=== PATIENT | male | born 1995 | race Two or more races ===

== ENCOUNTER 2019-10-19 23:59 | Inpatient (IN) | payer MEDICAID ==
[~2019-10-19] VITALS: Ht 182.9 cm; Wt 52.3 kg
[2019-10-20 00:50] LABS: Basophils # (auto) 0 10 ^3/uL (0-0.2); Basophils % (auto) 0.4 % (0.0-2.0); Eosinophils # (auto) 0 10 ^3/uL (0-0.8); Eosinophils % (auto) 0.4 % (0.0-7.0); Hematocrit 47.7 % (41.0-53.0); Hemoglobin 15.7 g/dL (13.5-17.5); Lymphocytes # (auto) 1.6 10 ^3/uL (0.4-5.4); Lymphocytes % (auto) 14.2 % (10.0-50.0); Mean Corpuscular Hemoglobin 29.1 pg (28.0-32.0); Mean Corpuscular Hgb Conc. 32.9 g/dL (32.0-36.0); Mean Corpuscular Volume 88.2 fL (80.0-100.0); Monocytes # (auto) 1.2 10 ^3/uL (0-1.3); Monocytes % (auto) 10.2 % (0.0-12.0); Neutrophils # (auto) 8.7 10 ^3/uL (1.6-8.6); Neutrophils % (auto) 74.8 % (37.0-80.0); Platelet Count (auto) 294 10^3/uL (140-450); Red Cell Distribution Width 13.3 % (11.8-14.3); White Blood Cell 11.6 10^3/uL (4.4-10.8)
[2019-10-20 00:54] LABS: Urine Bacteria NONE SEEN /hpf (None Seen); Urine Blood Negative /uL (Negative); Urine Mucus FEW (None Seen); Urine Specific Gravity 1.014 (1.001-1.035); Urine WBC <1 /hpf (0 - 3)
[2019-10-20 01:04] LABS: INR 1.07 (0.9-1.15); Partial Thromboplastin Time 30.4 sec (23.0-31.2)
[2019-10-20 01:12] LABS: Alcohol, Urine < 3.0 mg/dL (0-10); Barbiturate Scree,Urine NEGATIVE (NEGATIVE); Benzodiazephine Screen, Urine NEGATIVE (NEGATIVE); Cannabinoid Screen, Urine POSITIVE (NEGATIVE); Opiate Scree,Urine NEGATIVE (NEGATIVE); Phencyclidine Screen, Urine NEGATIVE (NEGATIVE)
[2019-10-20 01:13] LABS: BUN/Creatinine Ratio 9.8; Calcium 9.7 mg/dL (8.5-10.1); Potassium 3.7 mmol/L (3.5-5.1)
[2019-10-20 01:15] LABS: Bilirubin, Total 0.4 mg/dL (0.2-1.0); Total Protein 8.8 g/dL (6.4-8.2)
[2019-10-20 01:19] LABS: Amphetamine Screen, Urine NEGATIVE (NEGATIVE); Cocaine Screen, Urine NEGATIVE (NEGATIVE)
[2019-10-20] MEDS ORDERED: ONDANSETRON HCL 4 MG/2 ML VIAL IM ONE (01:45)
[2019-10-20] MEDS ORDERED: SODIUM CHLORIDE 0.9% 1,000 ML IV ONE (02:45)
[2019-10-20] MEDS ORDERED: DOXYCYCLINE 100MG/250ML 250 ML IV ONE (03:15)
[2019-10-20] MEDS ORDERED: DexAMETHasone SOD PHOS 10MG/1ML VIAL INJ IV ONE (03:15)
[2019-10-20] MEDS ORDERED: TUBERCULIN PPD 5 UNIT/0.1 ML ID ONE (05:00)
[2019-10-20] MEDS ORDERED: TEMAZEPAM 15 MG CAP PO PRN (06:15)
[2019-10-20] MEDS ORDERED: DOXYCYCLINE 100MG/250ML 250 ML IV SCH (06:15)
[2019-10-20] MEDS ORDERED: NITROGLYCERIN 0.4 MG SL TAB SL PRN (06:15)
[2019-10-20] MEDS ORDERED: MORPHINE SULF INJ 2 MG/ML SYRINGE 1ML IV PRN (06:15)
[2019-10-20] MEDS: FAMOTIDINE 20 MG TAB PO SCH ×2 (10:00→21:52)
[2019-10-20] MEDS ORDERED: CLINDAMYCIN 300MG IV 50 ML IV ONE (12:15)
[2019-10-20 13:00] VITALS: BP 136/81
[2019-10-20 17:00] VITALS: BP 118/74
[2019-10-20 20:00] VITALS: BP 116/71
[2019-10-20] MEDS: CLINDAMYCIN 300MG IV 50 ML IV SCH (21:51)
[2019-10-20 22:00] VITALS: BP 116/71
[2019-10-21 04:59] VITALS: BP 122/71
[2019-10-21 05:26] LABS: Basophils # (auto) 0 10 ^3/uL (0-0.2); Basophils % (auto) 0.4 % (0.0-2.0); Eosinophils # (auto) 0.1 10 ^3/uL (0-0.8); Eosinophils % (auto) 0.6 % (0.0-7.0); Hematocrit 43.8 % (41.0-53.0); Hemoglobin 14.8 g/dL (13.5-17.5); Lymphocytes # (auto) 1.7 10 ^3/uL (0.4-5.4); Lymphocytes % (auto) 16.7 % (10.0-50.0); Mean Corpuscular Hemoglobin 29.6 pg (28.0-32.0); Mean Corpuscular Hgb Conc. 33.8 g/dL (32.0-36.0); Mean Corpuscular Volume 87.7 fL (80.0-100.0); Monocytes # (auto) 1.3 10 ^3/uL (0-1.3); Monocytes % (auto) 12.7 % (0.0-12.0); Neutrophils # (auto) 7.1 10 ^3/uL (1.6-8.6); Neutrophils % (auto) 69.6 % (37.0-80.0); Platelet Count (auto) 265 10^3/uL (140-450); Red Blood Cells 4.99 10^6/uL (4.5-5.90); Red Cell Distribution Width 13.4 % (11.8-14.3); White Blood Cell 10.3 10^3/uL (4.4-10.8)
[2019-10-21 05:43] LABS: Calcium 9.3 mg/dL (8.5-10.1); Potassium 3.7 mmol/L (3.5-5.1)
[2019-10-21] MEDS: CLINDAMYCIN 300MG IV 50 ML IV SCH ×3 (06:20→22:25)
[2019-10-21 08:00] VITALS: BP 111/69
[2019-10-21] MEDS ORDERED: SODIUM CHLORIDE 0.9 % NEB SOLN 3ML NEB ONE (09:15)
[2019-10-21] MEDS: FAMOTIDINE 20 MG TAB PO SCH ×2 (09:36→22:24)
[2019-10-21 12:00] VITALS: BP 106/74
[2019-10-21 16:00] VITALS: BP 116/64
[2019-10-21 20:54] VITALS: BP 110/64
[2019-10-22] VITALS (76 sets, daily range): BP systolic 78–156; BP diastolic 41–121
[2019-10-22] MEDS: CLINDAMYCIN 300MG IV 50 ML IV SCH ×3 (05:20→22:00)
[2019-10-22] MEDS ORDERED: SODIUM CHLORIDE 0.9 % NEB SOLN 3ML NEB ONE (06:00)
[2019-10-22] MEDS ORDERED: ALBUTEROL SULF 2.5 MG/0.5ML(0.5%) NEB SOLN NEB PRN (09:00)
[2019-10-22] MEDS ORDERED: MORPHINE SULF INJ 2 MG/ML SYRINGE 1ML IV PRN ×2 (09:15)
[2019-10-22] MEDS ORDERED: NITROGLYCERIN 0.4 MG SL TAB SL PRN ×2 (09:15)
[2019-10-22 09:26] LABS: Basophils # (auto) 0 10 ^3/uL (0-0.2); Basophils % (auto) 0.2 % (0.0-2.0); Eosinophils # (auto) 0 10 ^3/uL (0-0.8); Eosinophils % (auto) 0.3 % (0.0-7.0); Hemoglobin 14.6 g/dL (13.5-17.5); Lymphocytes # (auto) 1.1 10 ^3/uL (0.4-5.4); Lymphocytes % (auto) 13.4 % (10.0-50.0); Mean Corpuscular Hemoglobin 29.3 pg (28.0-32.0); Mean Corpuscular Hgb Conc. 33.3 g/dL (32.0-36.0); Monocytes # (auto) 0.7 10 ^3/uL (0-1.3); Monocytes % (auto) 8.3 % (0.0-12.0); Neutrophils # (auto) 6.2 10 ^3/uL (1.6-8.6); Neutrophils % (auto) 77.8 % (37.0-80.0); Platelet Count (auto) 262 10^3/uL (140-450); White Blood Cell 7.9 10^3/uL (4.4-10.8)
[2019-10-22 09:37] LABS: Albumin 3.5 g/dL (3.4-5.0); BUN/Creatinine Ratio 19.1; Potassium 3.4 mmol/L (3.5-5.1)
[2019-10-22] MEDS: FAMOTIDINE 20 MG TAB PO SCH ×2 (09:38→23:30)
[2019-10-22 09:40] LABS: INR 1.08 (0.9-1.15); Partial Thromboplastin Time 29.3 sec (23.0-31.2)
[2019-10-22 09:56] LABS: Bilirubin, Total 0.3 mg/dL (0.2-1.0); Total Protein 7.8 g/dL (6.4-8.2)
[2019-10-22] MEDS ORDERED: POTASSIUM CHLORIDE 20 MEQ, LIDOCAINE 1% (LOCAL ANESTH.) 2 ML in SODIUM CHL 0.9% 100 ML IV ONE (10:30)
[2019-10-22] MEDS: IPRATROPIUM BROM 0.5 MG/2.5ML INH SOL NEB PRN (11:33)
[2019-10-22] MEDS ORDERED: GLYCOPYRROLATE 0.2 MG/ML 1ML VIAL ONE (12:40)
[2019-10-22] MEDS ORDERED: SODIUM CHLORIDE LOCK 10 ML ONE (12:41)
[2019-10-22] MEDS ORDERED: SODIUM CHLORIDE LOCK 20 ML ONE (12:41)
[2019-10-22] MEDS ORDERED: EPINEPHrine HCL 1 MG/1 ML AMP ONE ×2 (12:43→17:53)
[2019-10-22] MEDS ORDERED: BENZOCAINE (DENTAL) 20 % SPRAY 60ML MT ONE (12:43)
[2019-10-22] MEDS ORDERED: LIDOCAINE HCL 2% TOP JELLY 5ML TOP ONE (12:43)
[2019-10-22] MEDS ORDERED: LIDOCAINE 2%HCL (LOCAL ANESTH.) INJ 20ML MDV ONE (12:43)
[2019-10-22] MEDS ORDERED: FLUMAZENIL 0.1 MG/ML INJ 10ML MDV IV ONE (12:43)
[2019-10-22] MEDS ORDERED: NALOXONE HCL 0.4 MG/ML VIAL ONE (12:43)
[2019-10-22] MEDS ORDERED: diphenhdrAMINE HCL 50 MG/1 ML VL ONE (12:44)
[2019-10-22] MEDS ORDERED: rifAMPin 300 MG CAP PO ONE (13:15)
[2019-10-22] MEDS: ETHAMBUTOL HCL 400 MG TAB PO SCH (13:15)
[2019-10-22] MEDS: PYRIDOXINE HCL 50 MG TAB PO SCH (13:37)
[2019-10-22] MEDS: PYRAZINAMIDE 500 MG TAB PO SCH (14:00)
[2019-10-22] MEDS: SODIUM CHLOR 0.9% PF (SALINE LOCK) 10ML VIAL/SYR IV SCH ×2 (14:00→22:00)
[2019-10-22] MEDS ORDERED: LORazepam 2MG/ML-1ML VIAL IV PRN (14:15)
[2019-10-22] MEDS: MIDAZOLAM HCL 5 MG/ML-1ML VIAL ONE ×3 (14:47→14:51)
[2019-10-22] MEDS: fentaNYL CITRATE 100 MCG/2 ML VL ONE ×4 (14:47→14:54)
[2019-10-22] MEDS ORDERED: SUCCINYLCHOLINE CHLORIDE 20 MG/ML 10ML VIAL IV ONE ×2 (15:19→16:17)
[2019-10-22] MEDS ORDERED: ETOMIDATE (2MG/ML) 20ML VIAL IV ONE ×2 (15:19→16:25)
[2019-10-22] MEDS ORDERED: NOREPINEPHRINE 8 MG/250ML KIT 250 ML IV ONE (15:20)
[2019-10-22] MEDS ORDERED: PROPOFOL 100 ML IV ONE (15:29)
[2019-10-22] MEDS ORDERED: MIDAZOLAM DRIP 50 mg/50mL 50 ML IV ONE (15:38)
[2019-10-22] MEDS ORDERED: MIDAZOLAM HCL 1MG/1ML-2 ML VIAL ONE ×3 (15:41→19:44)
[2019-10-22] MEDS: MIDAZOLAM DRIP 50 mg/50mL 50 ML IV SCH (15:57)
[2019-10-22] MEDS ORDERED: PROPOFOL 100 ML IV SCH (15:57)
[2019-10-22] MEDS ORDERED: ISONIAZID 300 MG TAB PO ONE (16:00)
[2019-10-22] MEDS: ATRACURIUM BESYLATE 1,000 MG in D5W 5% 150 ML IV SCH (16:11)
[2019-10-22] MEDS ORDERED: HYDROCORTISONE SOD SUCC 100 MG/2ML INJ VIAL ONE (16:25)
[2019-10-22] MEDS: fentaNYL Drip 2500mCg/250mlNS 250 ML IV SCH (16:29)
[2019-10-22] MEDS ORDERED: fentaNYL CITRATE 100 MCG/2 ML VL ONE (16:33)
[2019-10-22] MEDS ORDERED: ROCURONIUM 10MG/ML 10ML VIAL IV ONE ×2 (17:16→18:38)
[2019-10-22] MEDS ORDERED: CLINDAMYCIN 600MG IV 50 ML IV ONE (18:45)
[2019-10-22] MEDS ORDERED: D5W/SOD CHL 0.45%/KCL 20MEQ 1,000 ML IV SCH (20:00)
[2019-10-22 20:39] LABS: Basophils # (auto) 0.1 10 ^3/uL (0-0.2); Basophils % (auto) 0.3 % (0.0-2.0); Eosinophils # (auto) 0.1 10 ^3/uL (0-0.8); Eosinophils % (auto) 0.4 % (0.0-7.0); Hematocrit 37.9 % (41.0-53.0); Hemoglobin 12.3 g/dL (13.5-17.5); Lymphocytes # (auto) 3.3 10 ^3/uL (0.4-5.4); Lymphocytes % (auto) 14.1 % (10.0-50.0); Mean Corpuscular Hemoglobin 29.3 pg (28.0-32.0); Mean Corpuscular Hgb Conc. 32.5 g/dL (32.0-36.0); Mean Corpuscular Volume 90.1 fL (80.0-100.0); Monocytes % (auto) 8.8 % (0.0-12.0); Neutrophils # (auto) 17.6 10 ^3/uL (1.6-8.6); Neutrophils % (auto) 76.4 % (37.0-80.0); Platelet Count (auto) 281 10^3/uL (140-450); Red Cell Distribution Width 13.4 % (11.8-14.3)
[2019-10-22] MEDS: NOREPINEPHRINE 8 MG/250ML KIT 250 ML IV SCH (21:45)
[2019-10-22] MEDS ORDERED: DEXTROSE (50%) 50ML SYRG IV ONE (23:00)
[2019-10-22] MEDS ORDERED: CALCIUM GLUC 4.65meq/50ml D5AE 50 ML IV ONE ×2 (23:00→23:18)
[2019-10-22] MEDS ORDERED: ALBUMIN 25% 100 ML IV ONE (23:00)
[2019-10-22] MEDS ORDERED: InsuLIN REG 1unit/0.01ml Soln (100units/ml) IV ONE (23:00)
[2019-10-22] MEDS ORDERED: SODIUM BICARBONATE 8.4 % INJ 50ML VIAL IV ONE ×2 (23:00→23:20)
[2019-10-22] MEDS ORDERED: InsuLIN REG 1unit/0.01ml Soln (100units/ml) ONE (23:18)
[2019-10-22] MEDS ORDERED: ALBUMIN 25% 50 ML IV ONE (23:18)
[2019-10-22] MEDS ORDERED: DEXTROSE 50% SYRINGE 50 ML IV ONE (23:19)
[2019-10-22] MEDS: D5W/SOD CHL 0.45% 1,000 ML IV SCH (23:30)
[2019-10-23] VITALS (103 sets, daily range): BP systolic 83–178; BP diastolic 38–102
[2019-10-23] MEDS: IPRATROPIUM BROM 0.5 MG/2.5ML INH SOL NEB SCH ×7 (02:00→22:24)
[2019-10-23] MEDS: MIDAZOLAM DRIP 50 mg/50mL 50 ML IV SCH ×2 (04:00→16:57)
[2019-10-23 04:19] LABS: Basophils # (auto) 0 10 ^3/uL (0-0.2); Basophils % (auto) 0.1 % (0.0-2.0); Eosinophils # (auto) 0 10 ^3/uL (0-0.8); Hematocrit 28.5 % (41.0-53.0); Hemoglobin 9.9 g/dL (13.5-17.5); Lymphocytes # (auto) 0.8 10 ^3/uL (0.4-5.4); Lymphocytes % (auto) 5.7 % (10.0-50.0); Mean Corpuscular Hemoglobin 30.1 pg (28.0-32.0); Mean Corpuscular Hgb Conc. 34.8 g/dL (32.0-36.0); Mean Corpuscular Volume 86.6 fL (80.0-100.0); Monocytes # (auto) 1.2 10 ^3/uL (0-1.3); Monocytes % (auto) 7.9 % (0.0-12.0); Neutrophils # (auto) 12.7 10 ^3/uL (1.6-8.6); Neutrophils % (auto) 86.3 % (37.0-80.0); Platelet Count (auto) 191 10^3/uL (140-450); Red Blood Cells 3.29 10^6/uL (4.5-5.90); Red Cell Distribution Width 13.1 % (11.8-14.3); White Blood Cell 14.7 10^3/uL (4.4-10.8)
[2019-10-23 04:25] LABS: Calcium 7.7 mg/dL (8.5-10.1); Potassium 3.6 mmol/L (3.5-5.1)
[2019-10-23 04:27] LABS: BUN/Creatinine Ratio 16.7
[2019-10-23] MEDS: ALBUTEROL SULF 2.5 MG/0.5ML(0.5%) NEB SOLN NEB SCH ×6 (06:00→22:24)
[2019-10-23] MEDS ORDERED: SODIUM CHLORIDE 0.9 % NEB SOLN 3ML NEB ONE (06:00)
[2019-10-23] MEDS: CLINDAMYCIN 300MG IV 50 ML IV SCH ×3 (06:19→23:24)
[2019-10-23] MEDS: SODIUM CHLOR 0.9% PF (SALINE LOCK) 10ML VIAL/SYR IV SCH ×3 (06:19→23:24)
[2019-10-23] MEDS: ACETAMINOPHEN 325 MG TAB PO PRN (06:20)
[2019-10-23 08:38] LABS: Albumin 3.1 g/dL (3.4-5.0)
[2019-10-23 08:45] LABS: Phosphorus 1.9 mg/dL (2.5-4.90); Pre Albumin 11.9 mg/dL (20.0-40.0)
[2019-10-23] MEDS: PYRIDOXINE HCL 50 MG TAB PO SCH (09:08)
[2019-10-23] MEDS: PANTOPRAZOLE 40 MG/10 ML VIAL INJ IV SCH (09:09)
[2019-10-23] MEDS: ETHAMBUTOL HCL 400 MG TAB PO SCH (09:09)
[2019-10-23] MEDS: rifAMPin 300 MG CAP PO SCH (09:10)
[2019-10-23] MEDS: FAMOTIDINE 20 MG TAB PO SCH ×2 (09:10→23:25)
[2019-10-23] MEDS ORDERED: cefTRIAXone 1GM/50ML D5W 50 ML IV ONE (10:15)
[2019-10-23] MEDS ORDERED: TPN PER PHARMACY 0 ML IV SCH (11:00)
[2019-10-23] MEDS ORDERED: InsuLIN REG 1unit/0.01ml Soln (100units/ml) SC SCH (12:00)
[2019-10-23] MEDS ORDERED: POTASSIUM PHOSPHATE 22 MEQ in SODIUM CHL 0.9% 100 ML IV ONE (12:00)
[2019-10-23] MEDS ORDERED: DEXTROSE (50%) 50ML SYRG IV SCH (12:00)
[2019-10-23] MEDS ORDERED: ACCU-CHEK COMFORT CURVE STRIP VI SCH (12:00)
[2019-10-23] MEDS ORDERED: LIDOCAINE 1% (LOCAL ANESTH.) PF 5ml SDV ID ONE (13:00)
[2019-10-23] MEDS: D5W/SOD CHL 0.45% 1,000 ML IV SCH ×2 (13:05→23:23)
[2019-10-23] MEDS: PYRAZINAMIDE 500 MG TAB PO SCH (15:07)
[2019-10-23] MEDS: ATRACURIUM BESYLATE 1,000 MG in D5W 5% 150 ML IV SCH (15:39)
[2019-10-23] MEDS: DexMEDEtomidine 400 MCG in D5W 5% 96 ML IV SCH (16:58)
[2019-10-23] MEDS: fentaNYL Drip 2500mCg/250mlNS 250 ML IV SCH (17:01)
[2019-10-23] MEDS: NOREPINEPHRINE 8 MG/250ML KIT 250 ML IV SCH (21:45)
[2019-10-23] MEDS: ISONIAZID 300 MG TAB PO SCH (23:25)
[2019-10-24] VITALS (106 sets, daily range): BP systolic 57–169; BP diastolic 39–94
[2019-10-24] MEDS: ALBUTEROL SULF 2.5 MG/0.5ML(0.5%) NEB SOLN NEB SCH ×6 (02:34→22:21)
[2019-10-24] MEDS: IPRATROPIUM BROM 0.5 MG/2.5ML INH SOL NEB SCH ×6 (02:34→22:21)
[2019-10-24] MEDS: CLINDAMYCIN 300MG IV 50 ML IV SCH ×3 (06:50→22:00)
[2019-10-24] MEDS: rifAMPin 300 MG CAP PO SCH (07:18)
[2019-10-24 07:33] LABS: Basophils # (auto) 0 10 ^3/uL (0-0.2); Basophils % (auto) 0.2 % (0.0-2.0); Eosinophils # (auto) 0.1 10 ^3/uL (0-0.8); Eosinophils % (auto) 1.3 % (0.0-7.0); Hematocrit 24.5 % (41.0-53.0); Hemoglobin 8.6 g/dL (13.5-17.5); Lymphocytes # (auto) 0.9 10 ^3/uL (0.4-5.4); Lymphocytes % (auto) 8.8 % (10.0-50.0); Mean Corpuscular Hgb Conc. 35.3 g/dL (32.0-36.0); Mean Corpuscular Volume 85.1 fL (80.0-100.0); Monocytes # (auto) 0.4 10 ^3/uL (0-1.3); Neutrophils # (auto) 8.4 10 ^3/uL (1.6-8.6); Neutrophils % (auto) 85.7 % (37.0-80.0); Platelet Count (auto) 154 10^3/uL (140-450); Red Blood Cells 2.88 10^6/uL (4.5-5.90); Red Cell Distribution Width 13.1 % (11.8-14.3); White Blood Cell 9.8 10^3/uL (4.4-10.8)
[2019-10-24 07:48] LABS: Albumin 2.6 g/dL (3.4-5.0); Calcium 7.6 mg/dL (8.5-10.1); Potassium 3.1 mmol/L (3.5-5.1)
[2019-10-24 07:51] LABS: BUN/Creatinine Ratio 11.8; Bilirubin, Total 1.2 mg/dL (0.2-1.0); Total Protein 5.6 g/dL (6.4-8.2)
[2019-10-24] MEDS: PANTOPRAZOLE 40 MG/10 ML VIAL INJ IV SCH (08:04)
[2019-10-24] MEDS: PYRAZINAMIDE 500 MG TAB PO SCH (08:05)
[2019-10-24] MEDS: SODIUM CHLOR 0.9% PF (SALINE LOCK) 10ML VIAL/SYR IV SCH ×2 (08:06→22:00)
[2019-10-24] MEDS: ETHAMBUTOL HCL 400 MG TAB PO SCH (08:06)
[2019-10-24] MEDS: PYRIDOXINE HCL 50 MG TAB PO SCH (08:06)
[2019-10-24] MEDS: FAMOTIDINE 20 MG TAB PO SCH (08:06)
[2019-10-24 08:28] LABS: INR 1.17 (0.9-1.15); Partial Thromboplastin Time 37.7 sec (23.0-31.2)
[2019-10-24] MEDS: cefTRIAXone 1GM/50ML D5W 50 ML IV SCH (10:11)
[2019-10-24] MEDS ORDERED: POTASSIUM PHOSPHATE 44 MEQ in D5W 5% 250 ML IV ONE (11:15)
[2019-10-24] MEDS: PROPOFOL 100 ML IV SCH (12:23)
[2019-10-24] MEDS: MIDAZOLAM DRIP 50 mg/50mL 50 ML IV SCH ×2 (13:52→15:56)
[2019-10-24] MEDS: fentaNYL Drip 2500mCg/250mlNS 250 ML IV SCH (13:53)
[2019-10-24] MEDS: D5W/SOD CHL 0.45% 1,000 ML IV SCH ×2 (13:54→15:00)
[2019-10-24] MEDS: ATRACURIUM BESYLATE 1,000 MG in D5W 5% 150 ML IV SCH (15:39)
[2019-10-24] MEDS: DexMEDEtomidine 400 MCG in D5W 5% 96 ML IV SCH (16:08)
[2019-10-24] MEDS: ISONIAZID 300 MG TAB PO SCH (22:00)
[2019-10-25] VITALS (108 sets, daily range): BP systolic 49–174; BP diastolic 11–137
[2019-10-25] MEDS: D5W/SOD CHL 0.45% 1,000 ML IV SCH ×3 (01:00→21:00)
[2019-10-25] MEDS: IPRATROPIUM BROM 0.5 MG/2.5ML INH SOL NEB SCH ×6 (02:13→22:42)
[2019-10-25] MEDS: ALBUTEROL SULF 2.5 MG/0.5ML(0.5%) NEB SOLN NEB SCH ×6 (02:13→22:42)
[2019-10-25] MEDS: CLINDAMYCIN 300MG IV 50 ML IV SCH (06:00)
[2019-10-25] MEDS: rifAMPin 300 MG CAP PO SCH (07:00)
[2019-10-25] MEDS: MIDAZOLAM DRIP 50 mg/50mL 50 ML IV SCH ×3 (07:55→18:39)
[2019-10-25 08:51] LABS: Basophils # (auto) 0 10 ^3/uL (0-0.2); Basophils % (auto) 0.1 % (0.0-2.0); Eosinophils # (auto) 0.2 10 ^3/uL (0-0.8); Eosinophils % (auto) 1.5 % (0.0-7.0); Hematocrit 26.1 % (41.0-53.0); Hemoglobin 8.8 g/dL (13.5-17.5); Lymphocytes # (auto) 0.8 10 ^3/uL (0.4-5.4); Lymphocytes % (auto) 5.8 % (10.0-50.0); Mean Corpuscular Hemoglobin 29.1 pg (28.0-32.0); Mean Corpuscular Hgb Conc. 33.8 g/dL (32.0-36.0); Monocytes # (auto) 0.6 10 ^3/uL (0-1.3); Monocytes % (auto) 4.1 % (0.0-12.0); Neutrophils # (auto) 12.8 10 ^3/uL (1.6-8.6); Neutrophils % (auto) 88.5 % (37.0-80.0); Platelet Count (auto) 200 10^3/uL (140-450); Red Blood Cells 3.04 10^6/uL (4.5-5.90); Red Cell Distribution Width 13.2 % (11.8-14.3); White Blood Cell 14.4 10^3/uL (4.4-10.8)
[2019-10-25] MEDS: fentaNYL Drip 2500mCg/250mlNS 250 ML IV SCH ×2 (09:10→21:30)
[2019-10-25 09:11] LABS: Albumin 2.3 g/dL (3.4-5.0); Calcium 7.8 mg/dL (8.5-10.1)
[2019-10-25] MEDS: ATRACURIUM BESYLATE 1,000 MG in D5W 5% 150 ML IV SCH (09:13)
[2019-10-25 09:15] LABS: BUN/Creatinine Ratio 10.3; Bilirubin, Total 0.8 mg/dL (0.2-1.0); Total Protein 5.9 g/dL (6.4-8.2)
[2019-10-25] MEDS: cefTRIAXone 1GM/50ML D5W 50 ML IV SCH (09:16)
[2019-10-25 09:35] LABS: Potassium 2.8 mmol/L (3.5-5.1)
[2019-10-25] MEDS ORDERED: POTASSIUM CHLORIDE 40 MEQ, LIDOCAINE 1% (LOCAL ANESTH.) 4 ML in SODIUM CHL 0.9% 100 ML IV ONE (09:45)
[2019-10-25 10:04] LABS: Magnesium 2.2 mg/dL (1.6-2.6); Phosphorus 1.8 mg/dL (2.5-4.90)
[2019-10-25] MEDS ORDERED: IOHEXOL 350 MG/ML 100ML IJ ONE (11:32)
[2019-10-25] MEDS ORDERED: POTASSIUM PHOSPHATE 44 MEQ in D5W 5% 250 ML IV ONE (12:45)
[2019-10-25] MEDS ORDERED: VANCOMYCIN PER PHARMACY 0 MG IV SCH (12:45)
[2019-10-25] MEDS: ETHAMBUTOL HCL 400 MG TAB PO SCH (13:13)
[2019-10-25] MEDS: PYRIDOXINE HCL 50 MG TAB PO SCH (13:14)
[2019-10-25] MEDS: PANTOPRAZOLE 40 MG/10 ML VIAL INJ IV SCH (13:16)
[2019-10-25] MEDS: SODIUM CHLOR 0.9% PF (SALINE LOCK) 10ML VIAL/SYR IV SCH ×2 (13:16→22:00)
[2019-10-25] MEDS: PROPOFOL 100 ML IV SCH ×2 (13:18→21:27)
[2019-10-25] MEDS: VANCOMYCIN 1GM/250ML 250 ML IV SCH ×2 (14:02→21:26)
[2019-10-25] MEDS: NOREPINEPHRINE 8 MG/250ML KIT 250 ML IV SCH ×2 (14:02→21:45)
[2019-10-25] MEDS: DexMEDEtomidine 400 MCG in D5W 5% 96 ML IV SCH (16:08)
[2019-10-25] MEDS: MEROPENEM 1GM IVPB 100 ML IV SCH ×2 (16:44→22:50)
[2019-10-25] MEDS: PYRAZINAMIDE 500 MG TAB PO SCH (17:32)
[2019-10-25] MEDS ORDERED: TPN PER PHARMACY 0 ML IV SCH (21:00)
[2019-10-25] MEDS: ISONIAZID 300 MG TAB PO SCH (22:00)
[2019-10-26] VITALS (106 sets, daily range): BP systolic 56–154; BP diastolic 50–114
[2019-10-26] MEDS: IPRATROPIUM BROM 0.5 MG/2.5ML INH SOL NEB SCH ×5 (02:35→22:00)
[2019-10-26] MEDS: ALBUTEROL SULF 2.5 MG/0.5ML(0.5%) NEB SOLN NEB SCH ×6 (02:35→22:00)
[2019-10-26] MEDS: MIDAZOLAM DRIP 50 mg/50mL 50 ML IV SCH ×4 (03:00→23:14)
[2019-10-26] MEDS: PROPOFOL 100 ML IV SCH ×2 (03:00→22:10)
[2019-10-26] MEDS: VANCOMYCIN 1GM/250ML 250 ML IV SCH ×3 (04:44→19:45)
[2019-10-26 05:09] LABS: Basophils # (auto) 0 10 ^3/uL (0-0.2); Basophils % (auto) 0.1 % (0.0-2.0); Eosinophils # (auto) 0.3 10 ^3/uL (0-0.8); Eosinophils % (auto) 2.6 % (0.0-7.0); Hemoglobin 12.2 g/dL (13.5-17.5); Lymphocytes # (auto) 0.9 10 ^3/uL (0.4-5.4); Lymphocytes % (auto) 8.5 % (10.0-50.0); Mean Corpuscular Hemoglobin 29.6 pg (28.0-32.0); Mean Corpuscular Hgb Conc. 32.2 g/dL (32.0-36.0); Mean Corpuscular Volume 92.1 fL (80.0-100.0); Monocytes # (auto) 0.6 10 ^3/uL (0-1.3); Monocytes % (auto) 5.6 % (0.0-12.0); Neutrophils # (auto) 9.1 10 ^3/uL (1.6-8.6); Neutrophils % (auto) 83.2 % (37.0-80.0); Nucleated Red Blood Cells % 0.2 %; Platelet Count (auto) 193 10^3/uL (140-450); Red Blood Cells 4.13 10^6/uL (4.5-5.90); Red Cell Distribution Width 14.5 % (11.8-14.3); White Blood Cell 10.9 10^3/uL (4.4-10.8)
[2019-10-26 05:22] LABS: Albumin 2.5 g/dL (3.4-5.0); Anion Gap 8 (5-15); Blood Urea Nitrogen 5 mg/dL (7-18); Calcium 8.5 mg/dL (8.5-10.1); Carbon Dioxide 25 mmol/L (21-32); Chloride 107 mmol/L (98-107); Glucose 90 mg/dL (74-106); Magnesium 2.7 mg/dL (1.6-2.6); Potassium 3.4 mmol/L (3.5-5.1); Sodium 140 mmol/L (136-145)
[2019-10-26 05:27] LABS: Alanine Aminotransferase 40 U/L (16-61); Alkaline Phosphatase 131 U/L (45-117); Aspartate Aminotransferase 94 U/L (15-37); BUN/Creatinine Ratio 8.1; Bilirubin, Total 1.2 mg/dL (0.2-1.0); GFR African American 209 mL/min; GFR Non-African American 172 mL/min; Phosphorus 3.2 mg/dL (2.5-4.90); Pre Albumin 6.2 mg/dL (20.0-40.0); Total Protein 6.6 g/dL (6.4-8.2); Triglycerides 240 mg/dL (< 150)
[2019-10-26] MEDS: ATRACURIUM BESYLATE 1,000 MG in D5W 5% 150 ML IV SCH ×2 (06:15→23:15)
[2019-10-26] MEDS: rifAMPin 300 MG CAP PO SCH (06:24)
[2019-10-26] MEDS: MEROPENEM 1GM IVPB 100 ML IV SCH ×3 (06:30→22:09)
[2019-10-26] MEDS ORDERED: POTASSIUM CHL 20MEQ/100ML 100 ML IV ONE (09:00)
[2019-10-26] MEDS: fentaNYL Drip 2500mCg/250mlNS 250 ML IV SCH ×2 (09:29→21:17)
[2019-10-26] MEDS: SODIUM CHLOR 0.9% PF (SALINE LOCK) 10ML VIAL/SYR IV SCH ×2 (10:43→21:12)
[2019-10-26] MEDS: PANTOPRAZOLE 40 MG/10 ML VIAL INJ IV SCH (10:43)
[2019-10-26] MEDS: POTASSIUM CHL 20MEQ/100ML 100 ML IV SCH ×3 (10:43→15:24)
[2019-10-26] MEDS: ETHAMBUTOL HCL 400 MG TAB PO SCH (10:44)
[2019-10-26] MEDS: PYRAZINAMIDE 500 MG TAB PO SCH (10:44)
[2019-10-26] MEDS: PYRIDOXINE HCL 50 MG TAB PO SCH (10:44)
[2019-10-26] MEDS: D5W/SOD CHL 0.45% 1,000 ML IV SCH ×3 (13:26→22:12)
[2019-10-26] MEDS: DexMEDEtomidine 400 MCG in D5W 5% 96 ML IV SCH (16:08)
[2019-10-26] MEDS ORDERED: DEXTROSE (50%) 50ML SYRG IV SCH (18:00)
[2019-10-26] MEDS: InsuLIN REG 1unit/0.01ml Soln (100units/ml) SC SCH (18:30)
[2019-10-26] MEDS: ACCU-CHEK COMFORT CURVE STRIP VI SCH (18:30)
[2019-10-26] MEDS ORDERED: TPN PER PHARMACY IV NR ×6 (20:00)
[2019-10-26] MEDS: ISONIAZID 300 MG TAB PO SCH (21:12)
[2019-10-27] VITALS (105 sets, daily range): BP systolic 56–210; BP diastolic 49–175
[2019-10-27] MEDS: ACCU-CHEK COMFORT CURVE STRIP VI SCH ×4 (01:00→18:00)
[2019-10-27] MEDS: VANCOMYCIN 1GM/250ML 250 ML IV SCH ×4 (01:15→21:00)
[2019-10-27] MEDS: MIDAZOLAM DRIP 50 mg/50mL 50 ML IV SCH ×4 (02:45→21:15)
[2019-10-27] MEDS: PROPOFOL 100 ML IV SCH ×2 (02:45→21:15)
[2019-10-27] MEDS: ALBUTEROL SULF 2.5 MG/0.5ML(0.5%) NEB SOLN NEB SCH ×6 (02:50→22:00)
[2019-10-27] MEDS: IPRATROPIUM BROM 0.5 MG/2.5ML INH SOL NEB SCH ×6 (02:50→22:00)
[2019-10-27] MEDS: rifAMPin 300 MG CAP PO SCH (05:57)
[2019-10-27] MEDS: InsuLIN REG 1unit/0.01ml Soln (100units/ml) SC SCH ×4 (07:25→18:00)
[2019-10-27 07:26] LABS: Hematocrit 33.3 % (41.0-53.0); Hemoglobin 11.3 g/dL (13.5-17.5); Mean Corpuscular Hemoglobin 29.5 pg (28.0-32.0); Mean Corpuscular Volume 86.9 fL (80.0-100.0); Platelet Count (auto) 243 10^3/uL (140-450); Red Blood Cells 3.84 10^6/uL (4.5-5.90); Red Cell Distribution Width 13.6 % (11.8-14.3); White Blood Cell 8.5 10^3/uL (4.4-10.8)
[2019-10-27 07:33] LABS: Basophils % (manual) 0 (0.0-2.0); Blast Cells 0; Myelocytes % 0; Promyelocytes % 0; Reactive Lymphocytes 0
[2019-10-27 07:54] LABS: Albumin 2.3 g/dL (3.4-5.0); Calcium 8.2 mg/dL (8.5-10.1); Magnesium 2.2 mg/dL (1.6-2.6); Potassium 3.5 mmol/L (3.5-5.1)
[2019-10-27 07:55] LABS: Band Neutrophils % (manual) 4; Eosinophils % (manual) 1 (0-7); Lymphocytes % (manual) 16 (10.0-50.0); Metamyelocytes % 1; Monocytes % (manual) 4 (0-12)
[2019-10-27 07:58] LABS: BUN/Creatinine Ratio 9.7; Bilirubin, Total 0.8 mg/dL (0.2-1.0); Phosphorus 3.3 mg/dL (2.5-4.90); Total Protein 6.8 g/dL (6.4-8.2)
[2019-10-27] MEDS: MEROPENEM 1GM IVPB 100 ML IV SCH ×3 (08:36→22:00)
[2019-10-27] MEDS: fentaNYL Drip 2500mCg/250mlNS 250 ML IV SCH ×2 (09:14→21:15)
[2019-10-27] MEDS: SODIUM CHLOR 0.9% PF (SALINE LOCK) 10ML VIAL/SYR IV SCH ×2 (10:35→22:00)
[2019-10-27] MEDS: ETHAMBUTOL HCL 400 MG TAB PO SCH (10:35)
[2019-10-27] MEDS: PYRIDOXINE HCL 50 MG TAB PO SCH (10:35)
[2019-10-27] MEDS: PANTOPRAZOLE 40 MG/10 ML VIAL INJ IV SCH (10:35)
[2019-10-27] MEDS: PYRAZINAMIDE 500 MG TAB PO SCH (10:36)
[2019-10-27] MEDS: NOREPINEPHRINE 8 MG/250ML KIT 250 ML IV SCH (12:21)
[2019-10-27] MEDS: ROCURONIUM BROMIDE 1,000 MG in D5W 5% 150 ML IV SCH (13:00)
[2019-10-27] MEDS: DexMEDEtomidine 400 MCG in D5W 5% 96 ML IV SCH (15:51)
[2019-10-27] MEDS: ACETAMINOPHEN 325 MG TAB PO PRN (18:58)
[2019-10-27] MEDS: D5W/SOD CHL 0.45% 1,000 ML IV SCH ×2 (19:46→20:00)
[2019-10-27] MEDS ORDERED: TPN PER PHARMACY IV NR ×9 (20:00)
[2019-10-27] MEDS: ISONIAZID 300 MG TAB PO SCH (22:00)
[2019-10-28] VITALS (105 sets, daily range): BP systolic 93–150; BP diastolic 49–99
[2019-10-28] MEDS: MIDAZOLAM DRIP 50 mg/50mL 50 ML IV SCH ×5 (00:13→22:34)
[2019-10-28] MEDS: ALBUTEROL SULF 2.5 MG/0.5ML(0.5%) NEB SOLN NEB SCH ×6 (02:19→21:53)
[2019-10-28] MEDS: IPRATROPIUM BROM 0.5 MG/2.5ML INH SOL NEB SCH ×6 (02:19→21:53)
[2019-10-28] MEDS: VANCOMYCIN 1GM/250ML 250 ML IV SCH ×4 (03:00→21:00)
[2019-10-28 04:53] LABS: Basophils # (auto) 0 10 ^3/uL (0-0.2); Basophils % (auto) 0.3 % (0.0-2.0); Eosinophils # (auto) 0.4 10 ^3/uL (0-0.8); Eosinophils % (auto) 5.4 % (0.0-7.0); Hematocrit 34.3 % (41.0-53.0); Hemoglobin 11.4 g/dL (13.5-17.5); Mean Corpuscular Hemoglobin 29.8 pg (28.0-32.0); Mean Corpuscular Hgb Conc. 33.2 g/dL (32.0-36.0); Mean Corpuscular Volume 89.9 fL (80.0-100.0); Monocytes # (auto) 0.6 10 ^3/uL (0-1.3); Monocytes % (auto) 7.7 % (0.0-12.0); Neutrophils # (auto) 6.2 10 ^3/uL (1.6-8.6); Neutrophils % (auto) 74.6 % (37.0-80.0); Nucleated Red Blood Cells % 0.2 %; Platelet Count (auto) 213 10^3/uL (140-450); Red Blood Cells 3.81 10^6/uL (4.5-5.90); Red Cell Distribution Width 14.3 % (11.8-14.3); White Blood Cell 8.3 10^3/uL (4.4-10.8)
[2019-10-28 05:16] LABS: Calcium 8.2 mg/dL (8.5-10.1); Magnesium 2.3 mg/dL (1.6-2.6); Potassium 3.6 mmol/L (3.5-5.1)
[2019-10-28 05:21] LABS: Albumin 2.2 g/dL (3.4-5.0); BUN/Creatinine Ratio 12.9; Bilirubin, Total 0.5 mg/dL (0.2-1.0); Phosphorus 2.9 mg/dL (2.5-4.90); Total Protein 7.1 g/dL (6.4-8.2)
[2019-10-28] MEDS: MEROPENEM 1GM IVPB 100 ML IV SCH ×3 (05:47→22:18)
[2019-10-28] MEDS: ACCU-CHEK COMFORT CURVE STRIP VI SCH ×4 (06:00→17:34)
[2019-10-28] MEDS: InsuLIN REG 1unit/0.01ml Soln (100units/ml) SC SCH ×4 (06:00→17:34)
[2019-10-28] MEDS: rifAMPin 300 MG CAP PO SCH (07:00)
[2019-10-28] MEDS: ROCURONIUM BROMIDE 1,000 MG in D5W 5% 150 ML IV SCH (07:42)
[2019-10-28] MEDS: fentaNYL Drip 2500mCg/250mlNS 250 ML IV SCH ×2 (07:44→20:00)
[2019-10-28] MEDS: PROPOFOL 100 ML IV SCH ×4 (07:45→22:21)
[2019-10-28] MEDS: PANTOPRAZOLE 40 MG/10 ML VIAL INJ IV SCH (10:04)
[2019-10-28] MEDS: PYRIDOXINE HCL 50 MG TAB PO SCH (10:05)
[2019-10-28] MEDS: PYRAZINAMIDE 500 MG TAB PO SCH (10:06)
[2019-10-28] MEDS: SODIUM CHLOR 0.9% PF (SALINE LOCK) 10ML VIAL/SYR IV SCH ×2 (10:06→22:18)
[2019-10-28] MEDS: ETHAMBUTOL HCL 400 MG TAB PO SCH (10:06)
[2019-10-28] MEDS: NOREPINEPHRINE 8 MG/250ML KIT 250 ML IV SCH (11:30)
[2019-10-28] MEDS: DexMEDEtomidine 400 MCG in D5W 5% 96 ML IV SCH (15:12)
[2019-10-28] MEDS: ACETAMINOPHEN 325 MG TAB PO PRN (18:23)
[2019-10-28] MEDS ORDERED: TPN PER PHARMACY IV NR ×9 (20:00)
[2019-10-28 21:58] LABS: Red Blood Cells 4.23 10^6/uL (4.5-5.90)
[2019-10-28] MEDS: ISONIAZID 300 MG TAB PO SCH (22:18)
[2019-10-28 22:21] LABS: Calcium 8.6 mg/dL (8.5-10.1); Potassium 4.3 mmol/L (3.5-5.1)
[2019-10-28 22:23] LABS: BUN/Creatinine Ratio 17.2
[2019-10-28 22:25] LABS: Hematocrit 38.2 % (41.0-53.0); Mean Corpuscular Hemoglobin 30.6 pg (28.0-32.0); Mean Corpuscular Hgb Conc. 33.9 g/dL (32.0-36.0); Mean Corpuscular Volume 90.2 fL (80.0-100.0); Platelet Count (auto) 230 10^3/uL (140-450); Red Cell Distribution Width 14.3 % (11.8-14.3); White Blood Cell 14.6 10^3/uL (4.4-10.8)
[2019-10-28 22:30] LABS: Basophils % (manual) 0 (0.0-2.0); Blast Cells 0; Promyelocytes % 0; Reactive Lymphocytes 0
[2019-10-28 23:11] LABS: Band Neutrophils % (manual) 13; Lymphocytes % (manual) 13 (10.0-50.0); Monocytes % (manual) 7 (0-12)
[2019-10-28 23:12] LABS: Eosinophils % (manual) 6 (0-7); Metamyelocytes % 2; Myelocytes % 1
[2019-10-29] VITALS (107 sets, daily range): BP systolic 96–158; BP diastolic 56–109
[2019-10-29] MEDS: ACETAMINOPHEN 325 MG TAB PO PRN (00:30)
[2019-10-29] MEDS: ROCURONIUM BROMIDE 1,000 MG in D5W 5% 150 ML IV SCH ×2 (01:00→21:59)
[2019-10-29] MEDS: ALBUTEROL SULF 2.5 MG/0.5ML(0.5%) NEB SOLN NEB SCH ×9 (02:00→22:00)
[2019-10-29] MEDS: IPRATROPIUM BROM 0.5 MG/2.5ML INH SOL NEB SCH ×6 (02:00→22:19)
[2019-10-29] MEDS: VANCOMYCIN 1GM/250ML 250 ML IV SCH ×4 (03:00→20:24)
[2019-10-29 03:47] LABS: Urine Bacteria NONE SEEN /hpf (None Seen); Urine Blood Negative /uL (Negative); Urine Specific Gravity 1.004 (1.001-1.035); Urine WBC 1 /hpf (0 - 3)
[2019-10-29 04:38] LABS: Hematocrit 34.9 % (41.0-53.0); Mean Corpuscular Hemoglobin 30.1 pg (28.0-32.0); Mean Corpuscular Hgb Conc. 34.2 g/dL (32.0-36.0); Mean Corpuscular Volume 87.9 fL (80.0-100.0); Platelet Count (auto) 271 10^3/uL (140-450); Red Blood Cells 3.97 10^6/uL (4.5-5.90); Red Cell Distribution Width 13.8 % (11.8-14.3); White Blood Cell 14.6 10^3/uL (4.4-10.8)
[2019-10-29] MEDS: fentaNYL Drip 2500mCg/250mlNS 250 ML IV SCH ×2 (04:45→16:35)
[2019-10-29] MEDS: PROPOFOL 100 ML IV SCH ×4 (04:46→23:00)
[2019-10-29 04:47] LABS: Basophils % (manual) 0 (0.0-2.0); Blast Cells 0; Promyelocytes % 0; Reactive Lymphocytes 0
[2019-10-29] MEDS: MIDAZOLAM DRIP 50 mg/50mL 50 ML IV SCH ×5 (04:47→23:00)
[2019-10-29 04:55] LABS: Albumin 2.4 g/dL (3.4-5.0); Calcium 8.4 mg/dL (8.5-10.1); Potassium 3.8 mmol/L (3.5-5.1)
[2019-10-29 05:01] LABS: BUN/Creatinine Ratio 17.2; Bilirubin, Total 0.7 mg/dL (0.2-1.0); Magnesium 2.2 mg/dL (1.6-2.6); Phosphorus 3.4 mg/dL (2.5-4.90); Total Protein 7.5 g/dL (6.4-8.2)
[2019-10-29 05:28] LABS: Band Neutrophils % (manual) 9; Eosinophils % (manual) 4 (0-7); Lymphocytes % (manual) 7 (10.0-50.0); Metamyelocytes % 3; Monocytes % (manual) 5 (0-12); Myelocytes % 5
[2019-10-29] MEDS: InsuLIN REG 1unit/0.01ml Soln (100units/ml) SC SCH ×4 (06:00→18:13)
[2019-10-29] MEDS: MEROPENEM 1GM IVPB 100 ML IV SCH ×3 (06:18→21:57)
[2019-10-29] MEDS: ACCU-CHEK COMFORT CURVE STRIP VI SCH ×4 (06:19→18:00)
[2019-10-29] MEDS: rifAMPin 300 MG CAP PO SCH (07:29)
[2019-10-29] MEDS ORDERED: DIGOXIN (250MCG/ML) 2 ML AMPULE IV ONE (09:30)
[2019-10-29] MEDS: PANTOPRAZOLE 40 MG/10 ML VIAL INJ IV SCH (09:59)
[2019-10-29] MEDS: PYRIDOXINE HCL 50 MG TAB PO SCH (10:00)
[2019-10-29] MEDS: PYRAZINAMIDE 500 MG TAB PO SCH (10:01)
[2019-10-29] MEDS: ETHAMBUTOL HCL 400 MG TAB PO SCH (10:01)
[2019-10-29] MEDS: NOREPINEPHRINE 8 MG/250ML KIT 250 ML IV SCH ×2 (10:15→20:24)
[2019-10-29] MEDS: ACETAMINOPHEN 650 mg PER 20.3 mL UD GT PRN ×2 (10:36→17:48)
[2019-10-29] MEDS: SODIUM CHLOR 0.9% PF (SALINE LOCK) 10ML VIAL/SYR IV SCH ×2 (10:37→21:14)
[2019-10-29] MEDS: DexMEDEtomidine 400 MCG in D5W 5% 96 ML IV SCH (16:08)
[2019-10-29] MEDS: D5W/SOD CHL 0.45% 1,000 ML IV SCH (19:53)
[2019-10-29] MEDS ORDERED: TPN PER PHARMACY IV NR ×10 (20:00)
[2019-10-29] MEDS: ISONIAZID 300 MG TAB PO SCH (21:14)
[2019-10-29] MEDS ORDERED: METOPROLOL TARTRATE 25 MG TAB PO SCH (22:00)
[2019-10-30] VITALS (94 sets, daily range): BP systolic 90–171; BP diastolic 38–121
[2019-10-30] MEDS: InsuLIN REG 1unit/0.01ml Soln (100units/ml) SC SCH ×4 (00:40→18:00)
[2019-10-30] MEDS: ACCU-CHEK COMFORT CURVE STRIP VI SCH ×4 (00:41→18:00)
[2019-10-30] MEDS: IPRATROPIUM BROM 0.5 MG/2.5ML INH SOL NEB SCH ×6 (02:00→22:10)
[2019-10-30] MEDS: ALBUTEROL SULF 2.5 MG/0.5ML(0.5%) NEB SOLN NEB SCH ×6 (02:00→22:10)
[2019-10-30] MEDS: VANCOMYCIN 1GM/250ML 250 ML IV SCH ×3 (04:00→15:24)
[2019-10-30 04:03] LABS: Hematocrit 35.1 % (41.0-53.0); Hemoglobin 11.9 g/dL (13.5-17.5); Mean Corpuscular Hemoglobin 29.7 pg (28.0-32.0); Mean Corpuscular Volume 87.3 fL (80.0-100.0); Platelet Count (auto) 280 10^3/uL (140-450); Red Blood Cells 4.02 10^6/uL (4.5-5.90); Red Cell Distribution Width 13.5 % (11.8-14.3)
[2019-10-30 04:07] LABS: Basophils % (manual) 0 (0.0-2.0); Blast Cells 0; Myelocytes % 0; Promyelocytes % 0; Reactive Lymphocytes 0
[2019-10-30 04:17] LABS: Potassium 4.1 mmol/L (3.5-5.1)
[2019-10-30] MEDS: PROPOFOL 100 ML IV SCH ×5 (04:23→21:47)
[2019-10-30 04:25] LABS: Band Neutrophils % (manual) 6; Eosinophils % (manual) 1 (0-7); Lymphocytes % (manual) 10 (10.0-50.0); Metamyelocytes % 1; Monocytes % (manual) 5 (0-12)
[2019-10-30 04:26] LABS: Albumin 2.3 g/dL (3.4-5.0); BUN/Creatinine Ratio 22.2; Calcium 8.5 mg/dL (8.5-10.1); Magnesium 2.5 mg/dL (1.6-2.6); Phosphorus 3.3 mg/dL (2.5-4.90); Total Protein 7.5 g/dL (6.4-8.2)
[2019-10-30] MEDS: fentaNYL Drip 2500mCg/250mlNS 250 ML IV SCH ×2 (04:41→17:00)
[2019-10-30] MEDS: MEROPENEM 1GM IVPB 100 ML IV SCH ×3 (06:11→20:19)
[2019-10-30] MEDS: rifAMPin 300 MG CAP PO SCH (06:11)
[2019-10-30] MEDS: SODIUM CHLOR 0.9% PF (SALINE LOCK) 10ML VIAL/SYR IV SCH ×2 (09:20→20:19)
[2019-10-30] MEDS: PANTOPRAZOLE 40 MG/10 ML VIAL INJ IV SCH (09:20)
[2019-10-30] MEDS: ETHAMBUTOL HCL 400 MG TAB PO SCH (09:21)
[2019-10-30] MEDS: PYRAZINAMIDE 500 MG TAB PO SCH (09:21)
[2019-10-30] MEDS: METOPROLOL TARTRATE 25 MG TAB PO SCH ×2 (09:21→20:19)
[2019-10-30] MEDS: PYRIDOXINE HCL 50 MG TAB PO SCH (09:21)
[2019-10-30] MEDS: MIDAZOLAM DRIP 50 mg/50mL 50 ML IV SCH ×2 (09:58→14:09)
[2019-10-30] MEDS ORDERED: DIGOXIN (250MCG/ML) 2 ML AMPULE IV SCH (10:00)
[2019-10-30] MEDS: DexMEDEtomidine 400 MCG in D5W 5% 96 ML IV SCH (15:00)
[2019-10-30] MEDS: ACETAMINOPHEN 650 mg PER 20.3 mL UD GT PRN (20:00)
[2019-10-30] MEDS ORDERED: TPN PER PHARMACY IV NR ×10 (20:00)
[2019-10-30] MEDS: D5W/SOD CHL 0.45% 1,000 ML IV SCH (20:00)
[2019-10-30] MEDS: ISONIAZID 300 MG TAB PO SCH (20:19)
[2019-10-30] MEDS: NOREPINEPHRINE 8 MG/250ML KIT 250 ML IV SCH (20:19)
[2019-10-31] VITALS (88 sets, daily range): BP systolic 83–135; BP diastolic 27–74
[2019-10-31] MEDS: DexMEDEtomidine 400 MCG in D5W 5% 96 ML IV SCH ×2 (00:03→08:30)
[2019-10-31] MEDS: MIDAZOLAM DRIP 50 mg/50mL 50 ML IV SCH (00:03)
[2019-10-31] MEDS: IPRATROPIUM BROM 0.5 MG/2.5ML INH SOL NEB SCH ×6 (02:09→22:15)
[2019-10-31] MEDS: ALBUTEROL SULF 2.5 MG/0.5ML(0.5%) NEB SOLN NEB SCH ×8 (02:09→22:15)
[2019-10-31] MEDS: PROPOFOL 100 ML IV SCH ×2 (02:47→05:38)
[2019-10-31 04:06] LABS: Hematocrit 32.4 % (41.0-53.0); Hemoglobin 11.3 g/dL (13.5-17.5); Mean Corpuscular Hemoglobin 30.3 pg (28.0-32.0); Mean Corpuscular Hgb Conc. 34.9 g/dL (32.0-36.0); Platelet Count (auto) 316 10^3/uL (140-450); Red Blood Cells 3.73 10^6/uL (4.5-5.90); Red Cell Distribution Width 13.5 % (11.8-14.3); White Blood Cell 11.5 10^3/uL (4.4-10.8)
[2019-10-31 04:27] LABS: Albumin 2.3 g/dL (3.4-5.0); Calcium 8.7 mg/dL (8.5-10.1); Magnesium 2.6 mg/dL (1.6-2.6); Potassium 4.5 mmol/L (3.5-5.1)
[2019-10-31] MEDS: NOREPINEPHRINE 8 MG/250ML KIT 250 ML IV SCH (04:30)
[2019-10-31 04:31] LABS: BUN/Creatinine Ratio 23.4; Phosphorus 2.4 mg/dL (2.5-4.90); Total Protein 7.2 g/dL (6.4-8.2)
[2019-10-31 04:53] LABS: Basophils % (manual) 0 (0.0-2.0); Blast Cells 0; Promyelocytes % 0; Reactive Lymphocytes 0
[2019-10-31] MEDS: rifAMPin 300 MG CAP PO SCH (05:35)
[2019-10-31] MEDS: InsuLIN REG 1unit/0.01ml Soln (100units/ml) SC SCH ×2 (05:35)
[2019-10-31] MEDS: ACCU-CHEK COMFORT CURVE STRIP VI SCH ×2 (05:35)
[2019-10-31] MEDS: MEROPENEM 1GM IVPB 100 ML IV SCH (05:35)
[2019-10-31] MEDS: fentaNYL Drip 2500mCg/250mlNS 250 ML IV SCH (05:36)
[2019-10-31 06:11] LABS: Eosinophils % (manual) 3 (0-7); Lymphocytes % (manual) 19 (10.0-50.0); Monocytes % (manual) 6 (0-12)
[2019-10-31 06:12] LABS: Band Neutrophils % (manual) 14; Myelocytes % 1
[2019-10-31 06:13] LABS: Metamyelocytes % 1
[2019-10-31] MEDS ORDERED: PHENYLEPHRINE INJ 40 MG in SODIUM CHL 0.9% 250 ML IV SCH (09:15)
[2019-10-31] MEDS: SODIUM CHLOR 0.9% PF (SALINE LOCK) 10ML VIAL/SYR IV SCH ×2 (10:00→22:22)
[2019-10-31] MEDS: ETHAMBUTOL HCL 400 MG TAB PO SCH (10:15)
[2019-10-31] MEDS: PYRAZINAMIDE 500 MG TAB PO SCH (10:15)
[2019-10-31] MEDS: PANTOPRAZOLE 40 MG/10 ML VIAL INJ IV SCH (10:15)
[2019-10-31] MEDS: PYRIDOXINE HCL 50 MG TAB PO SCH (10:15)
[2019-10-31] MEDS ORDERED: SODIUM CHLORIDE 0.9% 1,000 ML IV SCH (14:30)
[2019-10-31] MEDS: MORPHINE SULFATE 4 MG/ML SYR/VIAL IV PRN (16:02)
[2019-10-31] MEDS: ACETYLCYSTEINE 10 %(100MG/ML) SOL 4ML NEB SCH ×2 (18:20→22:16)
[2019-10-31] MEDS ORDERED: TPN PER PHARMACY IV NR ×9 (20:00)
[2019-10-31] MEDS: ACETAMINOPHEN 650 mg PER 20.3 mL UD GT PRN (21:31)
[2019-10-31] MEDS: LORazepam 2MG/ML-1ML VIAL IV PRN ×2 (21:32→23:43)
[2019-10-31] MEDS: ISONIAZID 300 MG TAB PO SCH (22:22)
[2019-10-31] MEDS ORDERED: SODIUM CHLORIDE 0.9% 500 ML IV ONE (22:45)
[2019-11-01] VITALS (45 sets, daily range): BP systolic 108–143; BP diastolic 44–86
[2019-11-01] MEDS: LORazepam 2MG/ML-1ML VIAL IV PRN (01:58)
[2019-11-01] MEDS: ONDANSETRON HCL 4 MG/2 ML VIAL IV PRN (01:59)
[2019-11-01] MEDS: ALBUTEROL SULF 2.5 MG/0.5ML(0.5%) NEB SOLN NEB SCH ×3 (02:00→11:11)
[2019-11-01] MEDS: IPRATROPIUM BROM 0.5 MG/2.5ML INH SOL NEB SCH ×3 (02:09→11:11)
[2019-11-01] MEDS: ACETYLCYSTEINE 10 %(100MG/ML) SOL 4ML NEB SCH ×4 (02:10→22:44)
[2019-11-01] MEDS ORDERED: ACETAMINOPHEN 650 MG RECT SUPP PR PRN (04:00)
[2019-11-01 04:30] LABS: Hematocrit 31.2 % (41.0-53.0); Hemoglobin 10.6 g/dL (13.5-17.5); Mean Corpuscular Hemoglobin 29.8 pg (28.0-32.0)
[2019-11-01 04:31] LABS: Mean Corpuscular Hgb Conc. 33.8 g/dL (32.0-36.0); Mean Corpuscular Volume 88.2 fL (80.0-100.0); Platelet Count (auto) 456 10^3/uL (140-450); Red Blood Cells 3.54 10^6/uL (4.5-5.90); Red Cell Distribution Width 13.7 % (11.8-14.3); White Blood Cell 14.7 10^3/uL (4.4-10.8)
[2019-11-01 04:41] LABS: Potassium 3.1 mmol/L (3.5-5.1)
[2019-11-01 04:43] LABS: Basophils % (manual) 0 (0.0-2.0); Blast Cells 0; Eosinophils % (manual) 0 (0-7); Myelocytes % 0; Promyelocytes % 0; Reactive Lymphocytes 0
[2019-11-01 04:48] LABS: Albumin 2.5 g/dL (3.4-5.0); BUN/Creatinine Ratio 27.6; Bilirubin, Total 1.1 mg/dL (0.2-1.0); Calcium 8.3 mg/dL (8.5-10.1); Total Protein 7.3 g/dL (6.4-8.2)
[2019-11-01 05:41] LABS: Band Neutrophils % (manual) 12; Lymphocytes % (manual) 8 (10.0-50.0); Metamyelocytes % 2; Monocytes % (manual) 7 (0-12)
[2019-11-01] MEDS: rifAMPin 300 MG CAP PO SCH (06:23)
[2019-11-01] MEDS: MORPHINE SULFATE 4 MG/ML SYR/VIAL IV PRN (08:50)
[2019-11-01] MEDS: cefTRIAXone 1GM/50ML D5W 50 ML IV SCH (08:57)
[2019-11-01] MEDS ORDERED: METOCLOPRAMIDE HCL 5MG/ml INJ 2ml VIAL IV ONE (09:15)
[2019-11-01] MEDS ORDERED: FUROSEMIDE 20 MG/2 ML VIAL IV ONE (09:15)
[2019-11-01] MEDS: PYRIDOXINE HCL 50 MG TAB PO SCH (09:48)
[2019-11-01] MEDS: ETHAMBUTOL HCL 400 MG TAB PO SCH (09:48)
[2019-11-01] MEDS: PYRAZINAMIDE 500 MG TAB PO SCH (09:48)
[2019-11-01] MEDS: PANTOPRAZOLE 40 MG/10 ML VIAL INJ IV SCH (10:09)
[2019-11-01] MEDS: SODIUM CHLOR 0.9% PF (SALINE LOCK) 10ML VIAL/SYR IV SCH ×2 (10:13→21:28)
[2019-11-01] MEDS: METOCLOPRAMIDE HCL 5MG/ml INJ 2ml VIAL IV SCH ×2 (14:00→21:31)
[2019-11-01] MEDS ORDERED: ACETAMINOPHEN 650 mg PER 20.3 mL UD GT PRN (19:15)
[2019-11-01] MEDS: ISONIAZID 300 MG TAB PO SCH (21:25)
[2019-11-01] MEDS: LEVALBUTEROL HCL 1.25 MG/3 ML NEB NEB SCH (22:44)
[2019-11-02] VITALS (23 sets, daily range): BP systolic 118–138; BP diastolic 61–89
[2019-11-02 05:33] LABS: Basophils # (auto) 0 10 ^3/uL (0-0.2); Basophils % (auto) 0.3 % (0.0-2.0); Eosinophils # (auto) 0 10 ^3/uL (0-0.8); Hematocrit 34.4 % (41.0-53.0); Hemoglobin 11.7 g/dL (13.5-17.5); Lymphocytes # (auto) 1.1 10 ^3/uL (0.4-5.4); Lymphocytes % (auto) 6.7 % (10.0-50.0); Mean Corpuscular Hemoglobin 29.6 pg (28.0-32.0); Mean Corpuscular Volume 87.1 fL (80.0-100.0); Monocytes # (auto) 1.5 10 ^3/uL (0-1.3); Monocytes % (auto) 9.4 % (0.0-12.0); Neutrophils # (auto) 13.5 10 ^3/uL (1.6-8.6); Neutrophils % (auto) 83.6 % (37.0-80.0); Platelet Count (auto) 640 10^3/uL (140-450); Red Blood Cells 3.95 10^6/uL (4.5-5.90); Red Cell Distribution Width 13.7 % (11.8-14.3); White Blood Cell 16.1 10^3/uL (4.4-10.8)
[2019-11-02] MEDS: METOCLOPRAMIDE HCL 5MG/ml INJ 2ml VIAL IV SCH ×3 (06:00→21:43)
[2019-11-02] MEDS: rifAMPin 300 MG CAP PO SCH (06:43)
[2019-11-02] MEDS: IPRATROPIUM BROM 0.5 MG/2.5ML INH SOL NEB PRN (07:18)
[2019-11-02] MEDS: LEVALBUTEROL HCL 1.25 MG/3 ML NEB NEB SCH ×3 (07:18→22:30)
[2019-11-02] MEDS: ACETYLCYSTEINE 10 %(100MG/ML) SOL 4ML NEB SCH ×3 (07:18→22:30)
[2019-11-02 09:32] LABS: Calcium 8.9 mg/dL (8.5-10.1); Potassium 3.5 mmol/L (3.5-5.1)
[2019-11-02 09:36] LABS: BUN/Creatinine Ratio 34.9
[2019-11-02] MEDS ORDERED: LORazepam 0.5 MG TAB PO PRN (10:15)
[2019-11-02] MEDS: PYRIDOXINE HCL 50 MG TAB PO SCH (10:21)
[2019-11-02] MEDS: ETHAMBUTOL HCL 400 MG TAB PO SCH (10:22)
[2019-11-02] MEDS: SODIUM CHLOR 0.9% PF (SALINE LOCK) 10ML VIAL/SYR IV SCH ×2 (10:22→21:45)
[2019-11-02] MEDS: PYRAZINAMIDE 500 MG TAB PO SCH (10:23)
[2019-11-02] MEDS: cefTRIAXone 1GM/50ML D5W 50 ML IV SCH (10:24)
[2019-11-02] MEDS ORDERED: ENOXAPARIN SOD 40 MG/0.4 ML SYRINGE SC ONE (11:45)
[2019-11-02] MEDS: Ensure Enlive Strawberry 8oz Bottle PO SCH ×2 (12:00→18:00)
[2019-11-02] MEDS: ONDANSETRON HCL 4 MG/2 ML VIAL IV PRN (19:47)
[2019-11-02] MEDS: QUEtiapine FUMARATE 25 MG TAB PO SCH (21:45)
[2019-11-02] MEDS: ISONIAZID 300 MG TAB PO SCH (21:45)
[2019-11-03] VITALS (24 sets, daily range): BP systolic 112–131; BP diastolic 63–94
[2019-11-03] MEDS: METOCLOPRAMIDE HCL 5MG/ml INJ 2ml VIAL IV SCH (06:00)
[2019-11-03] MEDS: rifAMPin 300 MG CAP PO SCH (06:26)
[2019-11-03] MEDS: ACETYLCYSTEINE 10 %(100MG/ML) SOL 4ML NEB SCH ×3 (06:49→22:13)
[2019-11-03] MEDS: IPRATROPIUM BROM 0.5 MG/2.5ML INH SOL NEB PRN (06:49)
[2019-11-03] MEDS: LEVALBUTEROL HCL 1.25 MG/3 ML NEB NEB SCH ×3 (06:49→22:13)
[2019-11-03] MEDS: Ensure Enlive Strawberry 8oz Bottle PO SCH ×3 (08:00→21:24)
[2019-11-03] MEDS: PYRIDOXINE HCL 50 MG TAB PO SCH (10:23)
[2019-11-03] MEDS: ETHAMBUTOL HCL 400 MG TAB PO SCH (10:24)
[2019-11-03] MEDS: SODIUM CHLOR 0.9% PF (SALINE LOCK) 10ML VIAL/SYR IV SCH ×2 (10:24→21:24)
[2019-11-03] MEDS: PYRAZINAMIDE 500 MG TAB PO SCH (10:24)
[2019-11-03] MEDS: ENOXAPARIN SOD 40 MG/0.4 ML SYRINGE SC SCH (18:27)
[2019-11-03] MEDS: ISONIAZID 300 MG TAB PO SCH (21:24)
[2019-11-03] MEDS: QUEtiapine FUMARATE 25 MG TAB PO SCH (21:28)
[2019-11-04] VITALS (10 sets, daily range): BP systolic 105–127; BP diastolic 55–77
[2019-11-04 04:32] LABS: Basophils # (auto) 0.1 10 ^3/uL (0-0.2)
[2019-11-04 04:36] LABS: Basophils % (auto) 0.9 % (0.0-2.0); Eosinophils # (auto) 0.1 10 ^3/uL (0-0.8); Eosinophils % (auto) 1.4 % (0.0-7.0); Hematocrit 35.2 % (41.0-53.0); Hemoglobin 12.3 g/dL (13.5-17.5); Lymphocytes # (auto) 1.6 10 ^3/uL (0.4-5.4); Lymphocytes % (auto) 15.8 % (10.0-50.0); Mean Corpuscular Hemoglobin 30.9 pg (28.0-32.0); Mean Corpuscular Volume 88.5 fL (80.0-100.0); Monocytes # (auto) 1.1 10 ^3/uL (0-1.3); Neutrophils # (auto) 7.3 10 ^3/uL (1.6-8.6); Neutrophils % (auto) 70.9 % (37.0-80.0); Red Blood Cells 3.98 10^6/uL (4.5-5.90); Red Cell Distribution Width 14.2 % (11.8-14.3); White Blood Cell 10.3 10^3/uL (4.4-10.8)
[2019-11-04 04:45] LABS: Platelet Count (auto) 858 10^3/uL (140-450)
[2019-11-04 04:54] LABS: Albumin 2.9 g/dL (3.4-5.0); Calcium 8.9 mg/dL (8.5-10.1); Potassium 3.5 mmol/L (3.5-5.1)
[2019-11-04 04:58] LABS: BUN/Creatinine Ratio 31.7; Bilirubin, Total 0.6 mg/dL (0.2-1.0); Total Protein 8.4 g/dL (6.4-8.2)
[2019-11-04] MEDS: rifAMPin 300 MG CAP PO SCH (07:00)
[2019-11-04] MEDS: ACETYLCYSTEINE 10 %(100MG/ML) SOL 4ML NEB SCH ×3 (07:01→22:37)
[2019-11-04] MEDS: IPRATROPIUM BROM 0.5 MG/2.5ML INH SOL NEB PRN (07:01)
[2019-11-04] MEDS: LEVALBUTEROL HCL 1.25 MG/3 ML NEB NEB SCH ×3 (07:01→22:36)
[2019-11-04] MEDS: Ensure Enlive Strawberry 8oz Bottle PO SCH ×3 (08:00→18:00)
[2019-11-04] MEDS: SODIUM CHLOR 0.9% PF (SALINE LOCK) 10ML VIAL/SYR IV SCH ×2 (09:53→22:18)
[2019-11-04] MEDS: PYRIDOXINE HCL 50 MG TAB PO SCH (10:27)
[2019-11-04] MEDS: ETHAMBUTOL HCL 400 MG TAB PO SCH (10:27)
[2019-11-04] MEDS: PYRAZINAMIDE 500 MG TAB PO SCH (10:27)
[2019-11-04] MEDS: ENOXAPARIN SOD 40 MG/0.4 ML SYRINGE SC SCH (10:28)
[2019-11-04] MEDS ORDERED: PANTOPRAZOLE 40 MG/10 ML VIAL INJ IV ONE (16:45)
[2019-11-04] MEDS: QUEtiapine FUMARATE 25 MG TAB PO SCH (22:18)
[2019-11-04] MEDS: ISONIAZID 300 MG TAB PO SCH (22:18)
[2019-11-05] MEDS: ACETAMINOPHEN 650 mg PER 20.3 mL UD PO PRN (05:08)
[2019-11-05] MEDS: rifAMPin 300 MG CAP PO SCH (06:36)
[2019-11-05] MEDS: ACETYLCYSTEINE 10 %(100MG/ML) SOL 4ML NEB SCH ×3 (06:47→23:39)
[2019-11-05] MEDS: LEVALBUTEROL HCL 1.25 MG/3 ML NEB NEB SCH ×3 (06:47→23:39)
[2019-11-05] MEDS: Ensure Enlive Strawberry 8oz Bottle PO SCH ×3 (07:56→18:27)
[2019-11-05 09:00] VITALS: BP 111/70
[2019-11-05] MEDS: PANTOPRAZOLE 40 MG/10 ML VIAL INJ IV SCH (09:11)
[2019-11-05] MEDS: ETHAMBUTOL HCL 400 MG TAB PO SCH (09:11)
[2019-11-05] MEDS: SODIUM CHLOR 0.9% PF (SALINE LOCK) 10ML VIAL/SYR IV SCH ×2 (09:11→22:00)
[2019-11-05] MEDS: PYRAZINAMIDE 500 MG TAB PO SCH (09:12)
[2019-11-05] MEDS: ENOXAPARIN SOD 40 MG/0.4 ML SYRINGE SC SCH (09:12)
[2019-11-05] MEDS: PYRIDOXINE HCL 50 MG TAB PO SCH (09:12)
[2019-11-05] MEDS ORDERED: HYDROCORTISONE ACET 25 MG RECTAL SUPP PR ONE (10:45)
[2019-11-05] MEDS ORDERED: HYDROCORTISONE 2.5% TOPICAL CREAM 30GM TUBE PR PRN (10:45)
[2019-11-05 13:00] VITALS: BP 106/66
[2019-11-05 17:00] VITALS: BP 110/72
[2019-11-05 22:00] VITALS: BP 120/62
[2019-11-05] MEDS: HYDROCORTISONE ACET 25 MG RECTAL SUPP PR SCH (22:00)
[2019-11-05] MEDS: ISONIAZID 300 MG TAB PO SCH (22:00)
[2019-11-05] MEDS: QUEtiapine FUMARATE 25 MG TAB PO SCH (22:00)
[2019-11-06 05:00] VITALS: BP 122/73
[2019-11-06] MEDS: rifAMPin 300 MG CAP PO SCH (07:00)
[2019-11-06] MEDS: ACETYLCYSTEINE 10 %(100MG/ML) SOL 4ML NEB SCH ×3 (07:35→22:27)
[2019-11-06] MEDS: LEVALBUTEROL HCL 1.25 MG/3 ML NEB NEB SCH ×3 (07:35→22:28)
[2019-11-06 08:00] VITALS: BP 122/75
[2019-11-06] MEDS: Ensure Enlive Strawberry 8oz Bottle PO SCH ×3 (08:09→18:08)
[2019-11-06] MEDS: ENOXAPARIN SOD 40 MG/0.4 ML SYRINGE SC SCH (10:00)
[2019-11-06] MEDS ORDERED: LIDOCAINE 2%HCL (LOCAL ANESTH.) INJ 20ML MDV ONE (10:05)
[2019-11-06] MEDS: ETHAMBUTOL HCL 400 MG TAB PO SCH (10:14)
[2019-11-06] MEDS: SODIUM CHLOR 0.9% PF (SALINE LOCK) 10ML VIAL/SYR IV SCH ×2 (10:14→22:38)
[2019-11-06] MEDS: PANTOPRAZOLE 40 MG/10 ML VIAL INJ IV SCH (10:14)
[2019-11-06] MEDS: HYDROCORTISONE ACET 25 MG RECTAL SUPP PR SCH ×2 (10:15→22:39)
[2019-11-06] MEDS: PYRAZINAMIDE 500 MG TAB PO SCH (10:15)
[2019-11-06] MEDS ORDERED: fentaNYL CITRATE 100 MCG/2 ML VL IV ONE (10:15)
[2019-11-06] MEDS: PYRIDOXINE HCL 50 MG TAB PO SCH (10:15)
[2019-11-06] MEDS ORDERED: MIDAZOLAM HCL 1MG/1ML-2 ML VIAL IV ONE (10:15)
[2019-11-06 10:35] LABS: INR 1.13 (0.9-1.15); Partial Thromboplastin Time 27.2 sec (23.0-31.2)
[2019-11-06 13:00] VITALS: BP 115/79
[2019-11-06 17:00] VITALS: BP 116/72
[2019-11-06 22:00] VITALS: BP 124/76
[2019-11-06] MEDS: ISONIAZID 300 MG TAB PO SCH (22:38)
[2019-11-06] MEDS: QUEtiapine FUMARATE 25 MG TAB PO SCH (22:38)
[2019-11-07 01:59] VITALS: BP 124/76
[2019-11-07 05:00] VITALS: BP 119/73
[2019-11-07] MEDS: rifAMPin 300 MG CAP PO SCH (07:00)
[2019-11-07] MEDS: LEVALBUTEROL HCL 1.25 MG/3 ML NEB NEB SCH ×3 (07:34→19:26)
[2019-11-07] MEDS: ACETYLCYSTEINE 10 %(100MG/ML) SOL 4ML NEB SCH ×3 (07:35→19:26)
[2019-11-07] MEDS: Ensure Enlive Strawberry 8oz Bottle PO SCH ×2 (08:00→12:18)
[2019-11-07] MEDS: ETHAMBUTOL HCL 400 MG TAB PO SCH (08:57)
[2019-11-07] MEDS: SODIUM CHLOR 0.9% PF (SALINE LOCK) 10ML VIAL/SYR IV SCH ×2 (08:57→22:44)
[2019-11-07] MEDS: PANTOPRAZOLE 40 MG/10 ML VIAL INJ IV SCH (08:57)
[2019-11-07] MEDS: PYRAZINAMIDE 500 MG TAB PO SCH (08:57)
[2019-11-07] MEDS: HYDROCORTISONE ACET 25 MG RECTAL SUPP PR SCH (08:58)
[2019-11-07] MEDS: PYRIDOXINE HCL 50 MG TAB PO SCH (08:58)
[2019-11-07] MEDS: ENOXAPARIN SOD 40 MG/0.4 ML SYRINGE SC SCH (08:58)
[2019-11-07 09:00] VITALS: BP 122/75
[2019-11-07 13:00] VITALS: BP 114/77
[2019-11-07] MEDS ORDERED: PYRI50TA PO (14:35)
[2019-11-07] MEDS ORDERED: RIFA300C3 PO (14:35)
[2019-11-07] MEDS ORDERED: ETHA400T20 PO (14:35)
[2019-11-07] MEDS ORDERED: ISON300T68 PO (14:35)
[2019-11-07 17:00] VITALS: BP 117/72
[2019-11-07] MEDS: IPRATROPIUM BROM 0.5 MG/2.5ML INH SOL NEB PRN (19:26)
[2019-11-07 22:00] VITALS: BP 114/71
[2019-11-07] MEDS ORDERED: QUEtiapine FUMARATE 25 MG TAB PO SCH (22:00)
[2019-11-07] MEDS: ISONIAZID 300 MG TAB PO SCH (23:03)
[2019-11-08 05:00] VITALS: BP 116/77
[2019-11-08] MEDS: rifAMPin 300 MG CAP PO SCH (06:33)
[2019-11-08] MEDS: ACETYLCYSTEINE 10 %(100MG/ML) SOL 4ML NEB SCH ×2 (07:36→14:20)
[2019-11-08] MEDS: LEVALBUTEROL HCL 1.25 MG/3 ML NEB NEB SCH ×2 (07:36→14:20)
[2019-11-08] MEDS: Ensure Enlive Strawberry 8oz Bottle PO SCH ×3 (08:00→17:00)
[2019-11-08 09:00] VITALS: BP 121/74
[2019-11-08] MEDS: PANTOPRAZOLE 40 MG/10 ML VIAL INJ IV SCH (11:23)
[2019-11-08] MEDS: SODIUM CHLOR 0.9% PF (SALINE LOCK) 10ML VIAL/SYR IV SCH ×2 (11:24→22:54)
[2019-11-08] MEDS: PYRIDOXINE HCL 50 MG TAB PO SCH (11:24)
[2019-11-08] MEDS: PYRAZINAMIDE 500 MG TAB PO SCH (11:25)
[2019-11-08] MEDS: ETHAMBUTOL HCL 400 MG TAB PO SCH (11:25)
[2019-11-08] MEDS: ENOXAPARIN SOD 40 MG/0.4 ML SYRINGE SC SCH (11:25)
[2019-11-08 13:54] VITALS: BP 125/75
[2019-11-08 17:36] VITALS: BP 125/75
[2019-11-08 22:00] VITALS: BP 116/68
[2019-11-08] MEDS: ISONIAZID 300 MG TAB PO SCH (22:54)
[2019-11-09 05:00] VITALS: BP 110/73
[2019-11-09 05:49] LABS: Basophils # (auto) 0.1 10 ^3/uL (0-0.2); Eosinophils # (auto) 0.5 10 ^3/uL (0-0.8); Monocytes # (auto) 0.8 10 ^3/uL (0-1.3); White Blood Cell 7.6 10^3/uL (4.4-10.8)
[2019-11-09 05:52] LABS: Basophils % (auto) 0.9 % (0.0-2.0); Eosinophils % (auto) 6.5 % (0.0-7.0); Hematocrit 38.1 % (41.0-53.0); Hemoglobin 13.2 g/dL (13.5-17.5); Lymphocytes # (auto) 1.8 10 ^3/uL (0.4-5.4); Lymphocytes % (auto) 23.2 % (10.0-50.0); Mean Corpuscular Hemoglobin 30.7 pg (28.0-32.0); Mean Corpuscular Hgb Conc. 34.5 g/dL (32.0-36.0); Monocytes % (auto) 10.8 % (0.0-12.0); Neutrophils # (auto) 4.4 10 ^3/uL (1.6-8.6); Neutrophils % (auto) 58.6 % (37.0-80.0); Red Blood Cells 4.28 10^6/uL (4.5-5.90)
[2019-11-09 06:08] LABS: Platelet Count (auto) 822 10^3/uL (140-450)
[2019-11-09 06:17] LABS: Albumin 3.1 g/dL (3.4-5.0); Calcium 9.3 mg/dL (8.5-10.1); Potassium 4.1 mmol/L (3.5-5.1)
[2019-11-09 06:20] LABS: BUN/Creatinine Ratio 27.9; Bilirubin, Total 0.4 mg/dL (0.2-1.0); Total Protein 8.1 g/dL (6.4-8.2)
[2019-11-09] MEDS: rifAMPin 300 MG CAP PO SCH (06:42)
[2019-11-09 09:00] VITALS: BP 123/71
[2019-11-09] MEDS: PYRIDOXINE HCL 50 MG TAB PO SCH (09:50)
[2019-11-09] MEDS: ETHAMBUTOL HCL 400 MG TAB PO SCH (09:50)
[2019-11-09] MEDS: PYRAZINAMIDE 500 MG TAB PO SCH (09:50)
[2019-11-09] MEDS: Ensure Enlive Strawberry 8oz Bottle PO SCH ×3 (09:50→18:42)
[2019-11-09] MEDS: SODIUM CHLOR 0.9% PF (SALINE LOCK) 10ML VIAL/SYR IV SCH ×2 (09:50→22:23)
[2019-11-09] MEDS: ENOXAPARIN SOD 40 MG/0.4 ML SYRINGE SC SCH (09:51)
[2019-11-09 13:00] VITALS: BP 113/75
[2019-11-09 17:36] VITALS: BP 113/78
[2019-11-09] MEDS: ACETAMINOPHEN 650 mg PER 20.3 mL UD PO PRN (19:33)
[2019-11-09 22:00] VITALS: BP 114/77
[2019-11-09] MEDS: ISONIAZID 300 MG TAB PO SCH (22:24)
[2019-11-10 01:43] VITALS: BP 114/71
[2019-11-10 05:00] VITALS: BP 131/80
[2019-11-10] MEDS: rifAMPin 300 MG CAP PO SCH (06:22)
[2019-11-10] MEDS: Ensure Enlive Strawberry 8oz Bottle PO SCH ×3 (08:53→17:39)
[2019-11-10 09:00] VITALS: BP 117/75
[2019-11-10] MEDS: ETHAMBUTOL HCL 400 MG TAB PO SCH (10:16)
[2019-11-10] MEDS: PYRIDOXINE HCL 50 MG TAB PO SCH (10:16)
[2019-11-10] MEDS: SODIUM CHLOR 0.9% PF (SALINE LOCK) 10ML VIAL/SYR IV SCH ×2 (10:16→22:27)
[2019-11-10] MEDS: ENOXAPARIN SOD 40 MG/0.4 ML SYRINGE SC SCH (10:17)
[2019-11-10] MEDS: PYRAZINAMIDE 500 MG TAB PO SCH (10:17)
[2019-11-10] MEDS ORDERED: traMADol HCL 50 MG TAB PO PRN (12:30)
[2019-11-10 13:10] VITALS: BP 110/74
[2019-11-10] MEDS ORDERED: SODIUM CHLORIDE 0.9 % NEB SOLN 3ML NEB ONE (16:00)
[2019-11-10 17:00] VITALS: BP 114/67
[2019-11-10] MEDS: ISONIAZID 300 MG TAB PO SCH (22:27)
[2019-11-10 22:45] VITALS: BP 120/78
[2019-11-11] MEDS: rifAMPin 300 MG CAP PO SCH (06:15)
[2019-11-11 06:18] VITALS: BP 125/80
[2019-11-11] MEDS: Ensure Enlive Strawberry 8oz Bottle PO SCH ×3 (08:00→18:27)
[2019-11-11 09:00] VITALS: BP 127/80
[2019-11-11] MEDS: ETHAMBUTOL HCL 400 MG TAB PO SCH (10:48)
[2019-11-11] MEDS: PYRIDOXINE HCL 50 MG TAB PO SCH (10:58)
[2019-11-11] MEDS: PYRAZINAMIDE 500 MG TAB PO SCH (10:58)
[2019-11-11] MEDS: ENOXAPARIN SOD 40 MG/0.4 ML SYRINGE SC SCH (10:59)
[2019-11-11 13:00] VITALS: BP 120/74
[2019-11-11 16:58] VITALS: BP 108/62
[2019-11-11 22:00] VITALS: BP 107/62
[2019-11-11] MEDS: ISONIAZID 300 MG TAB PO SCH (22:36)
[2019-11-12 05:00] VITALS: BP 121/72
[2019-11-12] MEDS: rifAMPin 300 MG CAP PO SCH (06:52)
[2019-11-12 07:56] VITALS: BP 114/73
[2019-11-12] MEDS: Ensure Enlive Strawberry 8oz Bottle PO SCH ×3 (08:33→18:59)
[2019-11-12 09:00] VITALS: BP 114/73
[2019-11-12 09:13] LABS: Basophils # (auto) 0.1 10 ^3/uL (0-0.2); Eosinophils # (auto) 0.4 10 ^3/uL (0-0.8); Lymphocytes % (auto) 21.4 % (10.0-50.0); Monocytes # (auto) 0.7 10 ^3/uL (0-1.3)
[2019-11-12 09:15] LABS: Basophils % (auto) 0.9 % (0.0-2.0); Eosinophils % (auto) 5.5 % (0.0-7.0); Hematocrit 39.7 % (41.0-53.0); Hemoglobin 13.5 g/dL (13.5-17.5); Lymphocytes # (auto) 1.5 10 ^3/uL (0.4-5.4); Mean Corpuscular Hemoglobin 30.9 pg (28.0-32.0); Mean Corpuscular Hgb Conc. 34.1 g/dL (32.0-36.0); Mean Corpuscular Volume 90.7 fL (80.0-100.0); Neutrophils # (auto) 4.4 10 ^3/uL (1.6-8.6); Neutrophils % (auto) 62.2 % (37.0-80.0); Nucleated Red Blood Cells % 0.1 %; Platelet Count (auto) 562 10^3/uL (140-450); Red Blood Cells 4.38 10^6/uL (4.5-5.90); Red Cell Distribution Width 14.8 % (11.8-14.3); White Blood Cell 7.1 10^3/uL (4.4-10.8)
[2019-11-12 09:29] LABS: Potassium 3.9 mmol/L (3.5-5.1)
[2019-11-12 09:38] LABS: Albumin 3.2 g/dL (3.4-5.0); BUN/Creatinine Ratio 24.1; Bilirubin, Total 0.4 mg/dL (0.2-1.0); Total Protein 7.8 g/dL (6.4-8.2)
[2019-11-12] MEDS: ENOXAPARIN SOD 40 MG/0.4 ML SYRINGE SC SCH (10:37)
[2019-11-12] MEDS: PYRIDOXINE HCL 50 MG TAB PO SCH (10:38)
[2019-11-12] MEDS: ETHAMBUTOL HCL 400 MG TAB PO SCH (10:38)
[2019-11-12] MEDS: PYRAZINAMIDE 500 MG TAB PO SCH (10:39)
[2019-11-12 14:27] VITALS: BP 122/72
[2019-11-12 18:30] VITALS: BP 122/60
[2019-11-12 22:00] VITALS: BP 103/60
[2019-11-12] MEDS: ISONIAZID 300 MG TAB PO SCH (22:29)
[2019-11-13 02:15] VITALS: BP 114/73
[2019-11-13 02:41] VITALS: BP 114/73
[2019-11-13 05:00] VITALS: BP 105/63
[2019-11-13] MEDS: rifAMPin 300 MG CAP PO SCH (06:45)
[2019-11-13] MEDS: Ensure Enlive Strawberry 8oz Bottle PO SCH ×3 (08:00→18:00)
[2019-11-13] MEDS: PYRAZINAMIDE 500 MG TAB PO SCH (09:47)
[2019-11-13] MEDS: ETHAMBUTOL HCL 400 MG TAB PO SCH (09:48)
[2019-11-13] MEDS: PYRIDOXINE HCL 50 MG TAB PO SCH (09:49)
[2019-11-13] MEDS: ENOXAPARIN SOD 40 MG/0.4 ML SYRINGE SC SCH (09:49)
[2019-11-13 13:02] VITALS: BP 124/54
[2019-11-13 17:44] VITALS: BP 107/65
[2019-11-13 22:00] VITALS: BP 104/64
[2019-11-13] MEDS: ISONIAZID 300 MG TAB PO SCH (22:52)
[2019-11-14 05:13] VITALS: BP 112/67
[2019-11-14] MEDS: rifAMPin 300 MG CAP PO SCH (07:10)
[2019-11-14] MEDS: Ensure Enlive Strawberry 8oz Bottle PO SCH ×3 (08:00→18:00)
[2019-11-14 09:00] VITALS: BP 119/95
[2019-11-14] MEDS: ENOXAPARIN SOD 40 MG/0.4 ML SYRINGE SC SCH (10:36)
[2019-11-14] MEDS: PYRIDOXINE HCL 50 MG TAB PO SCH (10:36)
[2019-11-14] MEDS: PYRAZINAMIDE 500 MG TAB PO SCH (10:37)
[2019-11-14] MEDS: ETHAMBUTOL HCL 400 MG TAB PO SCH (10:37)
[2019-11-14 13:00] VITALS: BP 117/87
[2019-11-14 17:00] VITALS: BP 110/62
[2019-11-14] MEDS: ISONIAZID 300 MG TAB PO SCH (21:49)
[2019-11-14 22:00] VITALS: BP 103/83
[2019-11-15 04:56] VITALS: BP 116/81
[2019-11-15] MEDS: rifAMPin 300 MG CAP PO SCH (06:20)
[2019-11-15 09:00] VITALS: BP 114/67
[2019-11-15] MEDS: Ensure Enlive Strawberry 8oz Bottle PO SCH ×3 (10:40→18:00)
[2019-11-15] MEDS: ENOXAPARIN SOD 40 MG/0.4 ML SYRINGE SC SCH (10:41)
[2019-11-15] MEDS: ETHAMBUTOL HCL 400 MG TAB PO SCH (10:42)
[2019-11-15] MEDS: PYRIDOXINE HCL 50 MG TAB PO SCH (10:43)
[2019-11-15] MEDS: PYRAZINAMIDE 500 MG TAB PO SCH (10:43)
[2019-11-15 13:00] VITALS: BP 101/68
[2019-11-15 17:00] VITALS: BP 128/89
[2019-11-15] MEDS: ISONIAZID 300 MG TAB PO SCH (21:43)
[2019-11-15 22:00] VITALS: BP 115/79
[2019-11-16 01:57] VITALS: BP 115/79
[2019-11-16 05:00] VITALS: BP 100/60
[2019-11-16] MEDS: rifAMPin 300 MG CAP PO SCH (06:31)
[2019-11-16 08:00] VITALS: BP 123/70
[2019-11-16] MEDS: Ensure Enlive Strawberry 8oz Bottle PO SCH ×3 (08:14→18:00)
[2019-11-16] MEDS: ENOXAPARIN SOD 40 MG/0.4 ML SYRINGE SC SCH (09:39)
[2019-11-16] MEDS: ETHAMBUTOL HCL 400 MG TAB PO SCH (09:39)
[2019-11-16] MEDS: PYRAZINAMIDE 500 MG TAB PO SCH (09:39)
[2019-11-16] MEDS: PYRIDOXINE HCL 50 MG TAB PO SCH (09:39)
[2019-11-16 13:00] VITALS: BP 104/64
[2019-11-16] MEDS: ISONIAZID 300 MG TAB PO SCH (21:45)
[2019-11-16 22:28] VITALS: BP 109/77
[2019-11-17 05:00] VITALS: BP 103/63
[2019-11-17] MEDS: rifAMPin 300 MG CAP PO SCH (06:35)
[2019-11-17 09:00] VITALS: BP 134/74
[2019-11-17] MEDS: ENOXAPARIN SOD 40 MG/0.4 ML SYRINGE SC SCH (10:11)
[2019-11-17] MEDS: PYRIDOXINE HCL 50 MG TAB PO SCH (10:11)
[2019-11-17] MEDS: ETHAMBUTOL HCL 400 MG TAB PO SCH (10:12)
[2019-11-17] MEDS: Ensure Enlive Strawberry 8oz Bottle PO SCH ×3 (10:13→18:47)
[2019-11-17] MEDS: PYRAZINAMIDE 500 MG TAB PO SCH (10:13)
[2019-11-17 13:00] VITALS: BP 114/82
[2019-11-17 17:00] VITALS: BP 102/54
[2019-11-17] MEDS: ISONIAZID 300 MG TAB PO SCH (22:12)
[2019-11-17 22:46] VITALS: BP 108/41
[2019-11-18 05:10] VITALS: BP 119/61
[2019-11-18] MEDS: rifAMPin 300 MG CAP PO SCH (06:43)
[2019-11-18 08:41] VITALS: BP 112/68
[2019-11-18] MEDS: Ensure Enlive Strawberry 8oz Bottle PO SCH ×3 (09:58→18:44)
[2019-11-18] MEDS: ENOXAPARIN SOD 40 MG/0.4 ML SYRINGE SC SCH (10:02)
[2019-11-18] MEDS: ETHAMBUTOL HCL 400 MG TAB PO SCH (10:03)
[2019-11-18] MEDS: PYRIDOXINE HCL 50 MG TAB PO SCH (10:03)
[2019-11-18] MEDS: PYRAZINAMIDE 500 MG TAB PO SCH (10:04)
[2019-11-18 12:36] VITALS: BP 121/78
[2019-11-18 16:35] VITALS: BP 126/61
[2019-11-18 20:39] VITALS: BP 126/61
[2019-11-18] MEDS: ISONIAZID 300 MG TAB PO SCH (21:17)
[2019-11-18 23:15] VITALS: BP 112/71
[2019-11-19 05:18] VITALS: BP 104/78
[2019-11-19] MEDS: rifAMPin 300 MG CAP PO SCH (06:21)
[2019-11-19 08:27] VITALS: BP 112/72
[2019-11-19] MEDS: Ensure Enlive Strawberry 8oz Bottle PO SCH ×3 (09:12→18:31)
[2019-11-19] MEDS: PYRAZINAMIDE 500 MG TAB PO SCH (10:14)
[2019-11-19] MEDS: ETHAMBUTOL HCL 400 MG TAB PO SCH (10:14)
[2019-11-19] MEDS: PYRIDOXINE HCL 50 MG TAB PO SCH (10:15)
[2019-11-19] MEDS: ENOXAPARIN SOD 40 MG/0.4 ML SYRINGE SC SCH (10:15)
[2019-11-19 13:00] VITALS: BP 115/83
[2019-11-19 16:59] VITALS: BP 115/70
[2019-11-19 21:00] VITALS: BP 102/72
[2019-11-19] MEDS: ACETAMINOPHEN 650 mg PER 20.3 mL UD PO PRN (21:47)
[2019-11-19] MEDS: ISONIAZID 300 MG TAB PO SCH (21:47)
[2019-11-20 05:00] VITALS: BP 117/64
[2019-11-20] MEDS: rifAMPin 300 MG CAP PO SCH (06:20)
[2019-11-20] MEDS: Ensure Enlive Strawberry 8oz Bottle PO SCH (08:00)
[2019-11-20 09:00] VITALS: BP 109/80
[2019-11-20] MEDS: ENOXAPARIN SOD 40 MG/0.4 ML SYRINGE SC SCH (09:50)
[2019-11-20] MEDS: PYRIDOXINE HCL 50 MG TAB PO SCH (09:51)
[2019-11-20] MEDS: PYRAZINAMIDE 500 MG TAB PO SCH (09:52)
[2019-11-20] MEDS: ETHAMBUTOL HCL 400 MG TAB PO SCH (09:52)
[2019-11-20 13:00] VITALS: BP 116/78
== END 2019-11-20 13:55 | disposition home or self-care (01) | DRG 130 ==
LOC: ER 10-20 00:03 → TELE 10-20 00:04 → TELE-EAST 10-20 09:30 → TELE-WESTW 10-20 12:59 → WEST WING 10-22 08:58 → TELE-WESTW 10-22 09:09 → DOU IN ICU 10-22 10:02 → ICU WEST 10-22 15:59 → WEST WING 11-04 04:41
PROVIDERS: ADMIT Nurse Practitioner; ATTEND Internal Medicine Pulmonary Disease
PROC: 0BH17EZ Insertion of Endotracheal Airway into Trachea, Via Natural or Artificial Opening (ICD-10-PCS; 2019-10-22)
PROC: 30233N1 Transfusion of Nonautologous Red Blood Cells into Peripheral Vein, Percutaneous Approach (ICD-10-PCS; 2019-10-22)
PROC: 0BJ08ZZ Inspection of Tracheobronchial Tree, Via Natural or Artificial Opening Endoscopic (ICD-10-PCS; 2019-10-22)
PROC: 0BBC0ZZ Excision of Right Upper Lung Lobe, Open Approach (ICD-10-PCS; 2019-10-22)
PROC: 5A1955Z Respiratory Ventilation, Greater than 96 Consecutive Hours (ICD-10-PCS; principal; 2019-10-22 14:00)
PROC: 02HV33Z Insertion of Infusion Device into Superior Vena Cava, Percutaneous Approach (ICD-10-PCS; 2019-10-23)
PROC: 30233K1 Transfusion of Nonautologous Frozen Plasma into Peripheral Vein, Percutaneous Approach (ICD-10-PCS; 2019-10-25)
DX: A15.7 Primary respiratory tuberculosis (principal); J96.01 Acute respiratory failure with hypoxia; J14 Pneumonia due to Hemophilus influenzae; Z20.828 Contact with and (suspected) exposure to other viral communicable diseases; R04.2 Hemoptysis; J85.1 Abscess of lung with pneumonia; F12.90 Cannabis use, unspecified, uncomplicated; F17.210 Nicotine dependence, cigarettes, uncomplicated; R44.3 Hallucinations, unspecified; J93.9 Pneumothorax, unspecified
CPT/HCPCS: 31622; 36415; 36600; 71045; 71046; 71250; 71275; 80048; 80051; 80053; 80202; 80307; 81001; 82040; 82728; 82805; 82962; 83605; 83735; 83880; 84075; 84100; 84450; 84460; 84478; 85007; 85025; 85027; 85379; 85610; 85730; 86038; 86606; 86641; 86703; 86850; 86900; 86901; 86920; 87040; 87070; 87081; 87086; 87205; 87426; 93005; 93970; 93971; 94002; 94003; 94640; 96365; 96366; 96375; 97110; 97116; 97163; 97530; A4618; C9113; G0378; J0171; J0330; J0610; J0696; J1100; J1815; J2001; J2185; J2250; J2405; J2704; J3480; J3490; J7060; J7131; P9047